=== PATIENT | female | born 1990 | race African-American/Black ===

== ENCOUNTER → 2024-01-29 10:11 | Outpatient (BNVA) | payer OTHER, SELFPAY | PROVIDERS: Visit Provider Physician Assistant Surgical ==

== ENCOUNTER → 2024-02-12 09:23 | Outpatient (BNVA) | payer OTHER, MEDICAID, SELFPAY | PROVIDERS: Visit Provider Physician Assistant Surgical ==

== ENCOUNTER 2024-04-08 07:52 | Outpatient (AMB) | payer OTHER, MEDICAID, SELFPAY ==
--- NOTE | 2024-04-08 10:04 | A.OFFVIS_ITS ---
VS Expanded 04/08/24 10:22 Height 5 ft 3 in Weight 256 lb BMI 45.3 Body Fat % 49.2 Body Fat Mass 125.8 Fat Free Mass 130 Visceral Fat Rating 14 Body Water % 49.2 Body Water Mass 125.8 Basal Metabolic Rate/Score 1,880 Intake Visit Reasons: TV [employer] SWL BMI 45.4 Allergies adalimumab [From Humira] Allergy (Intermediate, Verified 04/08/24 10:04) Hives venlafaxine Allergy (Intermediate, Verified 04/08/24 10:04) Anaphylaxis etanercept [From Enbrel] Adverse Reaction (Intermediate, Verified 04/08/24 10:04) Hives Medication List - Last Reconciled 04/08/24 by Az Cruz MD amlodipine 5 mg PO DAILY bupropion HCl 100 mg PO BID dulaglutide (Trulicity) mg subcut ferrous sulfate 325 mg PO DAILY folic acid 1 mg PO DAILY gabapentin 300 mg PO DAILY indapamide 1.25 mg PO DAILY infliximab-dyyb (Inflectra) IV loratadine (Allergy Relief (loratadine)) 10 mg PO DAILY meloxicam 15 mg PO DAILY methotrexate (PF) (Rasuvo (PF)) mg subcut oxycodone 10 mg PO BID PRN phenazopyridine 200 mg PO TID prednisolone 2.5 mg PO BID vibegron (Gemtesa) 75 mg PO DAILY HPI HPI TV [employer] SWL BMI 45.4: Details: Start time: 9.56am, End time: 10.41am ?I spent 40 minutes speaking with the patient on the phone plus an additional 5 minutes reviewing and updating records for a total of 45 minutes HPI Comments Details: Previous weight loss efforts: self diet Wakes up: 8am, Sleeps: 12am Breakfast: skips Lunch: 12pm (fast food) Dinner:6pm (steak, rice, pasta, potatoes) Snacks: 3pm (fruits, chips), 10pm (fruits, chips) Exercise: none Fluids: Coffee: none, tea: (1 cup/day with cream), soda: none, juice: cranberry juice, ETOH: none PFSH Medical History (Updated 04/08/24 @ 10:16 by Az Cruz MD) Hypertension Anxiety Stress incontinence Rheumatoid arthritis Non-insulin dependent type 2 diabetes mellitus Sleep apnea treated with continuous positive airway pressure (CPAP) Morbid obesity Telehealth Telehealth Telehealth Platform: Telephone Location of provider rendering services: practice address Location of patient: address on file Patient Identification confirmed using: Name, : Yes Telehealth method: voice only Patient verbally consented to treatment: Yes Patient verbally consented to billing insurance company: Yes Patient informed of any privacy concerns related to visit: Yes Minutes spent on Phone/Video with Pt.: 45 Assessment & Plan Assessment & Plan (1) Morbid obesity: Code(s): E66.01 - Morbid (severe) obesity due to excess calories Category: Medical Plan: 1.? Plan for lap sleeve gastrectomy. If diaphragmatic or ventral hernias are present at time of surgery, these will be repaired laparoscopically as well. Risks and complications include possible conversion to an open procedure, anastomotic leak, bleeding requiring transfusion, small bowel obstruction, , DVT and pulmonary embolism, cardiac, or pulmonary complications, as fpc complications such as anastomotic ulcer, insufficient weight loss and vitamin deficiencies. I emphasized the importance of close follow-up, adherence to instructions and good communication. 2. You will receive a link of our software tracy to generate an individualized nutritional and exercise plan specific for you. Please send me a screenshot of the plans you will generate Meal to include lean meat (beef, fish, pork, turkey, chicken), or turkish yogurt, or egg whites, or beans with a salad with olive oil and fruits (berries, pears, apples, kiwi). Avoid salt, breads, potatoes, rice, pasta, desserts. ?3. If you choose shakes, each shake would be drunk slowly, like coffee in a period of 2 hours. ?4. If you choose bars, cut each bar in 4 pieces and eat each piece in 30min ?to make each bar last 2 hours. ?5. I emphasized the importance of measuring accurately the food portion and measure it when serving the food in plate ?6. The meal portions include a specific number of forks of meat and salad. You always eat the meat portion but you can replace up to half of salad/vegetables portion with rice, potatoes or pasta, or a fruit ?if you like. The less you do it the better weight loss will be. ?7. One full-size fork is what it can be scooped on the fork without falling aside and not what can be bit with the fork. Use regular forks like those you find in a typical restaurant. ?8.? Please send me weight measurements as soon as possible and then once a week. Always include your diet and exercise plan. 9. The best choice would be to purchase a stationary bike, elliptical or treadmill at home that can track calories. Let me know if you do so I can give you an exercise plan. ?10.?It is important of avoiding and for at least 18 months postoperatively and has been discussed at the infosession. ?11. Goal is to lose at least 1.5-2lbs per week ?12. Goal to lose 10% of your weight before surgery, which is about 25lbs. Ultimate weight goal: 231lbs before surgery 13. Please follow the diet plan exactly without any change. If you don't like something about the plan or you feel hungry you need to communicate with me so I can help you revise the plan. You should not change the plan yourself. 14. To be scheduled for EGD to assess your stomach. The possibility of biopsies was discussed. Patient needs to avoid use of NSAIDs and aspirin for 1 week prior to EGD. Risks of perforation and? bleeding was discussed with the patient. This will be an outpatient procedure with IV sedation. Orders: Orders Insulin Today E11.9 - Type 2 diabetes mellitus without complications, E66.01 - Morbid (severe) obesity due to excess calories, G47.30 - Sleep apnea, unspecified, I10 - Essential (primary) hypertension Hemoglobin A1c Today E11.9 - Type 2 diabetes mellitus without complications, E66.01 - Morbid (severe) obesity due to excess calories, G47.30 - Sleep apnea, unspecified, I10 - Essential (primary) hypertension Lipid Panel Today E11.9 - Type 2 diabetes mellitus without complications, E66.01 - Morbid (severe) obesity due to excess calories, G47.30 - Sleep apnea, unspecified, I10 - Essential (primary) hypertension IRON PROFILE Today E11.9 - Type 2 diabetes mellitus without complications, E66.01 - Morbid (severe) obesity due to excess calories, G47.30 - Sleep apnea, unspecified, I10 - Essential (primary) hypertension Vitamin B12 and Folate Today E11.9 - Type 2 diabetes mellitus without complications, E66.01 - Morbid (severe) obesity due to excess calories, G47.30 - Sleep apnea, unspecified, I10 - Essential (primary) hypertension Zinc Today E11.9 - Type 2 diabetes mellitus without complications, E66.01 - Morbid (severe) obesity due to excess calories, G47.30 - Sleep apnea, unspecified, I10 - Essential (primary) hypertension Vitamin B1 Today E11.9 - Type 2 diabetes mellitus without complications, E66.01 - Morbid (severe) obesity due to excess calories, G47.30 - Sleep apnea, unspecified, I10 - Essential (primary) hypertension TSH reflex Free T4 Today E11.9 - Type 2 diabetes mellitus without complication s, E66.01 - Morbid (severe) obesity due to excess calories, G47.30 - Sleep apnea, unspecified, I10 - Essential (primary) hypertension Vitamin D 25-OH Total Today E11.9 - Type 2 diabetes mellitus without complications, E66.01 - Morbid (severe) obesity due to excess calories, G47.30 - Sleep apnea, unspecified, I10 - Essential (primary) hypertension ECG 12 lead EKG Today E11.9 - Type 2 diabetes mellitus without complications, E66.01 - Morbid (severe) obesity due to excess calories, G47.30 - Sleep apnea, unspecified, I10 - Essential (primary) hypertension H Pylori Breath Test Today E11.9 - Type 2 diabetes mellitus without complications, E66.01 - Morbid (severe) obesity due to excess calories, G47.30 - Sleep apnea, unspecified, I10 - Essential (primary) hypertension Complete Blood Count Auto Diff Today E11.9 - Type 2 diabetes mellitus without complications, E66.01 - Morbid (severe) obesity due to excess calories, G47.30 - Sleep apnea, unspecified, I10 - Essential (primary) hypertension Comprehensive Met. Panel Today E11.9 - Type 2 diabetes mellitus without complications, E66.01 - Morbid (severe) obesity due to excess calories, G47.30 - Sleep apnea, unspecified, I10 - Essential (primary) hypertension C Reactive Protein Today E11.9 - Type 2 diabetes mellitus without complications, E66.01 - Morbid (severe) obesity due to excess calories, G47.30 - Sleep apnea, unspecified, I10 - Essential (primary) hypertension Vitamin A Today E11.9 - Type 2 diabetes mellitus without complications, E66.01 - Morbid (severe) obesity due to excess calories, G47.30 - Sleep apnea, unspecified, I10 - Essential (primary) hypertension Ferritin Today E11.9 - Type 2 diabetes mellitus without complications, E66.01 - Morbid (severe) obesity due to excess calories, G47.30 - Sleep apnea, unspe cified, I10 - Essential (primary) hypertension US abdomen comp w elastography Today E11.9 - Type 2 diabetes mellitus without complications, E66.01 - Morbid (severe) obesity due to excess calories, G47.30 - Sleep apnea, unspecified, I10 - Essential (primary) hypertension XR chest 2V Today E11.9 - Type 2 diabetes mellitus without complications, E 66.01 - Morbid (severe) obesity due to excess calories, G47.30 - Sleep apnea, unspecified, I10 - Essential (primary) hypertension FL upper GI w air Today E11.9 - Type 2 diabetes mellitus without complications, E66.01 - Morbid (severe) obesity due to excess calories, G47.30 - Sleep apnea, unspecified, I10 - Essential (primary) hypertension Referrals Behavioral Health Referral E11.9 - Type 2 diabetes mellitus without complications, E66.01 - Morbid (severe) obesity due to excess calories, G47.30 - Sleep apnea, unspecified, I10 - Essential (primary) hypertension Nutrition/Dietitian Referral E11.9 - Type 2 diabetes mellitus without complications, E66.01 - Morbid (severe) obesity due to excess calories, G47.30 - Sleep apnea, unspecified, I10 - Essential (primary) hypertension
[2024-04-08 10:22] VITALS: BMI 45.3
== END 2024-04-08 10:42 | disposition home or self-care (01) ==
LOC: HO.HBS 07:52
PROVIDERS: Visit Provider Surgery
DX: E66.01 Morbid (severe) obesity due to excess calories (principal)
CPT/HCPCS: 99204

== ENCOUNTER → 2024-04-08 07:52 | Outpatient (BNVA) | payer OTHER, MEDICAID, SELFPAY | PROVIDERS: Visit Provider Surgery ==

== ENCOUNTER 2024-04-20 10:34 | Outpatient (REF) | payer MEDICARE, SELFPAY ==
--- NOTE | ~2024-04-20 | XR_ITS ---
EXAMINATION: XR CHEST CLINICAL INFORMATION: Morbid severe obesity due to excess calories, weight loss surgery. COMPARISON: None available. TECHNIQUE: 2 views of the chest were obtained. FINDINGS: There is no gross pneumothorax. Lung volumes are low. Heart size is normal. No pleural effusion. No focal consolidation to suggest pneumonia. Mild dextroscoliosis of the lumbar spine. XR/XR chest 2V IMPRESSION: No evidence of pneumonia.
[2024-04-20 10:56] LABS: MANUAL DIFF FLAG NO
--- NOTE | 2024-04-20 10:57 | ECG_ITS ---
Test Reason : e66.01 Blood Pressure : / mmHG Vent. Rate : 085 BPM Atrial Rate : 085 BPM P-R Int : 162 ms QRS Dur : 082 ms QT Int : 380 ms P-R-T Axes : 037 021 007 degrees QTc Int : 452 ms Normal sinus rhythm Nonspecific T wave abnormality Abnormal ECG No previous ECGs available Referred By: Az Cruz Electronically Signed By:JOHN MEDRANO
[2024-04-20 11:48] LABS: Basophils Absolute Auto 0.1 X10*3/uL (0.0-0.2); Basophils Percent Auto 0.8 % (0-2); Eosinophils Absolute Auto 0.2 X10*3/uL (0.0-0.4); Eosinophils Percent Auto 1.9 % (0-4); Hematocrit 41.8 % (37.0-47.0); Hemoglobin 13.8 g/dl (12.0-16.0); Imm Gran Pct Auto 0.9 % (0.0-0.4); Lymphocytes Absolute Auto 3.3 X10*3/uL (1.2-4.9); Lymphocytes Percent Auto 29.9 % (20-40); Mean Corpuscular Hemoglobin 28.6 pg (27.0-33.0); Mean Corpuscular Volume 86.7 fL (80.0-98.0); Mean Platelet Volume 9.3 fL (9.4-12.3); Monocytes Percent Auto 9.3 % (2-11); Neutrophils Absolute Auto 6.3 x10*3/uL (2.0-8.3); Neutrophils Percent Auto 57.2 % (45-73); Platelet Count 312 X10*3/uL (160-400); Red Blood Count 4.82 X10*6/uL (4.20-5.50); Red Cell Distribution Width 13.9 % (11.0-16.0)
[2024-04-20 11:53] LABS: Estimated Average Glucose 105 mg/dL; Hemoglobin A1c % 5.3 % (<6.0)
[2024-04-20 12:26] LABS: Alanine Aminotransferase 30 U/L (0-31); Alkaline Phosphatase 57 U/L (39-117); Aspartate Amino Transferase 18 U/L (5-31); Bilirubin Total 0.7 mg/dL (0.0-1.0); Blood Urea Nitrogen 19 mg/dL (9-16); C Reactive Protein 3.23 mg/dL (< or = 0.50); Calcium 9.6 mg/dL (8.4-10.2); Cholesterol 197 mg/dL (<200); Estimated Glomerular Filt Rate > 60; Glucose Random 87 mg/dL (60-115); HDL Cholesterol 41 mg/dL (>40); Iron 60 mcg/dL (30-160); LDL Cholesterol Calculated 132 mg/dL (<100); Percent Iron Saturation 21 % (15-50); Total Iron Binding Capacity 291 mcg/dL (228-428); Total Protein 7.6 g/dL (6.5-8.0); Triglycerides 122 mg/dL (<150); Unsaturated Iron Binding 231 ug/dL
[2024-04-20 12:37] LABS: Anion Gap 12 (12-20); Carbon Dioxide 26 mmol/L (22-29); Chloride 105 mmol/L (96-108); Potassium 2.9 mmol/L (3.3-5.1); Sodium 140 mmol/L (135-145)
[2024-04-20 12:40] LABS: Ferritin 235 ng/mL (10-122); Vitamin D 25-OH Total 38.6 ng/mL (>30)
[2024-04-20 12:45] LABS: Folate > 20.0 ng/mL (> or = 4.0); Insulin 26 uU/mL (2-29); Vitamin B12 572 pg/mL (200-900)
[2024-04-26 02:58] LABS: Zinc 61 mcg/dL (60-130)
[2024-04-26 13:58] LABS: Vitamin A 38 mcg/dL (38-98)
[2024-04-26 15:13] LABS: Vitamin B1 6 nmol/L (8-30)
== END 2024-04-20 10:35 | disposition home or self-care (01) ==
LOC: HO.LAB 10:34
PROVIDERS: PCP Internal Medicine; Visit Provider Surgery
DX: Z13.89 Encounter for screening for other disorder (principal)
CPT/HCPCS: 36415; 71046; 80053; 80061; 82306; 82607; 82728; 82746; 83036; 83525; 83540; 84425; 84443; 84590; 84630; 85025; 86140; 93005

== ENCOUNTER → 2024-04-20 10:57 | Outpatient (BNV) | payer MEDICARE, SELFPAY | PROVIDERS: PCP Internal Medicine; Visit Provider Internal Medicine | DX: R94.31 Abnormal electrocardiogram [ECG] [EKG] (principal) | CPT/HCPCS: 93010 ==

== ENCOUNTER 2024-04-20 14:46 | Emergency (ER) | payer MEDICARE, SELFPAY ==
[2024-04-20 14:52] VITALS: BP 136/71; PULSE 113; RESP 20; TEMP 36.6; O2SAT 99; BMI 46.4
--- NOTE | 2024-04-20 14:52 | ED_ITS ---
HPI - General Adult General Chief complaint: Recheck/Abnormal Lab/Rx Stated complaint: Sent by Dr Ross abnormal labs Source: patient Mode of arrival: ambulatory History of Present Illness ED Provider: Dr Barnes HPI narrative: 33-year-old female who presents after being instructed to come into the emergency room for routine lab work that demonstrated a potassium of 2.9, patient denies any chest pain/abdominal discomfort and denies any muscular cramps. She states she has otherwise been feeling well but has recently been starting on ramipril. Related Data Home Medications ?Medication ?Instructions ?Recorded ?Confirmed dulaglutide 0.75 mg/0.5 mL mg subcut 02/12/24 subcutaneous pen injector (Trulicity) ferrous sulfate 325 mg (65 mg 325 mg PO DAILY 02/12/24 iron) tablet folic acid 1 mg tablet 1 mg PO DAILY 02/12/24 gabapentin 300 mg capsule 300 mg PO DAILY 02/12/24 indapamide 1.25 mg tablet 1.25 mg PO DAILY 02/12/24 loratadine 10 mg tablet (Allergy 10 mg PO DAILY 02/12/24 Relief (loratadine)) methotrexate (PF) 25 mg/0.5 mL mg subcut 02/12/24 subcutaneous auto-injector (Rasuvo (PF)) oxycodone 10 mg tablet 10 mg PO BID PRN 02/12/24 prednisolone 5 mg tablet 2.5 mg PO BID 02/12/24 amlodipine 5 mg tablet 5 mg PO DAILY 04/08/24 04/08/24 bupropion HCl 100 mg tablet 100 mg PO BID 04/08/24 04/08/24 infliximab-dyyb 100 mg intravenous IV 04/08/24 04/08/24 solution (Inflectra) meloxicam 15 mg tablet 15 mg PO DAILY 04/08/24 04/08/24 phenazopyridine 200 mg tablet 200 mg PO TID 04/08/24 04/08/24 vibegron 75 mg tablet (Gemtesa) 75 mg PO DAILY 04/08/24 04/08/24 Allergies Allergy/AdvReac Type Severity Reaction Status Date / Time adalimumab [From Humira] Allergy Intermediate Hives Verified 04/20/24 14:53 venlafaxine Allergy Intermediate Anaphylaxis Verified 04/20/24 14:53 etanercept [From Enbrel] AdvReac Intermediate Hives Verified 04/20/24 14:53 Review of Systems 2 Review of Systems: Pertinent positives and negatives as stated in HPI PMFSH Past Medical History Source: nursing notes reviewed Medical History Hypertension Anxiety Stress incontinence Rheumatoid arthritis Non-insulin dependent type 2 diabetes mellitus Sleep apnea treated with continuous positive airway pressure (CPAP) Morbid obesity Social History Social History Advance Directives: No Advance Directives Information Provided: No Physical Exam ED Vital Signs: Vital Signs - 24 hr 04/20/24 14:52 04/20/24 21:16 04/20/24 21:52 Temperature 97.9 F 98.0 F 97.0 F Pulse Rate 113 H 83 83 Respiratory Rate 20 16 16 Blood Pressure 136/71 140/69 H 128/80 Pulse Oximetry 99 97 97 Oxygen Delivery Method Room Air Room Air Room Air BMI result Body Mass Index 46.4 VITAL SIGNS: Reviewed. GENERAL: Well developed, well nourished, in no acute distress. HEAD: Normocephalic/atraumatic EYES: PERRLA, EOMI EARS: Ext canals without abnormality NOSE: Nares patent bilateral OROPHARYNX: no oral lesions noted, posterior pharynx clear NECK: Supple, no adenopathy LUNGS: Normal breath sounds. No adventitious sounds or accessory muscle use. SpO2<97> CARDIOVASCULAR: Regular rate and rhythm without noted murmurs ABDOMEN: Soft, non-tender, non-distended with bowel sounds. MUSCULOSKELETAL: No tenderness, deformities, or effusions noted on gross inspection. EXTREMITIES: No cyanosis, clubbing or edema. SKIN: Inspection of the skin reveals no rashes NEUROLOGIC: Alert and oriented x 4. Strength and sensation to light touch were grossly intact x 4. Course Course Course Narrative: This is a rapid medical exam performed by Alize Harrington NP: Additional HPI, ROS, PE not included below will be deferred to primary provider. Patient is a 33-year-old female with history of T2DM, HTN, RA, sleep apnea on CPAP, anxiety presenting to the ED from PCP for abnormal labs. States potassium is 2.9 on labs drawn this am. Denies chest pain, felt palpitations the other day, some fatigue. Plan: EKG, repeat labs Medical Decision Making Medical Decision Making MDM Narrative: 33-year-old female with history and clinical presentation, DDX: Medication induced hypokalemia as patient denies any history of vomiting or diarrhea. I reviewed all investigations and hematologic indices are negative for leukocytosis/anemia/thrombocytopenia. Chemistry indices demonstrate a mild hypokalemia without symptoms or EKG changes, there is no KURT and beta hCG is undetectable. EKG does not show any acute changes. Patient was repleted with 60 mEq of potassium chloride, encouraged to discuss the medication with her primary care doctor and also provided with a food list for potassium content. She is otherwise discharged in stable condition. Differential Diagnosis Differential Diagnoses: The differential diagnosis associated with the presentation includes Please see the discussion above Admission/Observation Consideration of admission/observation: Escalation of care including admission/observation considered Please see the discussion above Lab Data MDM Lab Attestation statement: I reviewed the patient's lab results. Please see the discussion above 04/20/24 15:37 04/20/24 15:37 Labs: Lab Results 04/20/24 Range/Units 15:37 WBC 10.4 (4.8-10.8) X10*3/uL RBC 4.85 (4.20-5.50) X10*6/uL Hgb 13.9 (12.0-16.0) g/dl Hct 41.8 (37.0-47.0) % MCV 86.2 (80.0-98.0) fL MCH 28.7 (27.0-33.0) pg MCHC 33.3 (31.0-35.0) g/dl RDW 13.6 (11.0-16.0) % Plt Count 304 (160-400) X10*3/uL MPV 9.0 L (9.4-12.3) fL Immature Gran % (Auto) 0.9 H (0.0-0.4) % Neut % (Auto) 67.8 (45-73) % Lymph % (Auto) 23.8 (20-40) % Mccracken % (Auto) 5.8 (2-11) % Eos % (Auto) 1.0 (0-4) % Baso % (Auto) 0.7 (0-2) % Lymph # (Auto) 2.5 (1.2-4.9) X10*3/uL Mccracken # (Auto) 0.6 (0.1-1.2) X10*3/uL Eos # (Auto) 0.1 (0.0-0.4) X10*3/uL Baso # (Auto) 0.1 (0.0-0.2) X10*3/uL Abs Immat Gran (auto) 0.09 H (0.00-0.03) X10*3/uL Absolute Neuts (auto) 7.1 (2.0-8.3) x10*3/uL Absolute Nucleated RBC 0.000 (0.0-0.012) X10*3/uL Nucleated RBC % (auto) 0.0 (0.0-0.2) /100WBC Sodium 140 (135-145) mmol/L Potassium 3.1 L (3.3-5.1) mmol/L Chloride 104 (96-108) mmol/L Carbon Dioxide 26 (22-29) mmol/L Anion Gap 13 (12-20) BUN 20 H (9-16) mg/dL Creatinine 1.20 (0.5-1.4) mg/dL Estim Creat Clear Calc 82.3 Estimated GFR 51 Random Glucose 113 (60-115) mg/dL Calcium 10.2 D (8.4-10.2) mg/dL Total Bilirubin 0.7 (0.0-1.0) mg/dL AST 20 (5-31) U/L ALT 32 H (0-31) U/L Alkaline Phosphatase 54 (39-117) U/L Total Protein 7.8 (6.5-8.0) g/dL Albumin 4.0 (3.5-5.0) g/dL Beta HCG, Quant < 2 mIU/mL Independent Interpretation I performed an independent interpretation of an: EKG Interpretation: Normal sinus rhythm, HR-100, no STEMI, NM/QRS/QTC is within normal limits, there are no acute EKG changes when compared to prior from April/2024. External Record Review External record reviewed: Outpatient record and Prior outpatient labs Chronic Conditions Patient?s care impacted by: Hypertension and Other Obesity, rheumatoid arthritis Critical Care Time Critical Care Time Critical Care Time: Yes Total Critical Care Time: 45 Attestation: I personally attest to this time spent taking care of the patient. Discharge Plan Discharge Clinical Impression: Hypokalemia Patient Disposition: Home, Self-Care Instructions: Potassium Content of Foods List (ED), Hypokalemia (ED) Additional Instructions: 1. Resume all home medications as prescribed. 2. Please follow-up with your doctors as prescribed, please review the informational list of potassium content in foods, the decrease in your potassium may be secondary to your new medication and this can be further evaluated by your primary care doctor. Do not hesitate to return to the emergency room for any worsening symptoms. Prescriptions: No Action Trulicity 0.75 mg/0.5 mL pen injector subcut ferrous sulfate 325 mg (65 mg iron) tablet 325 mg PO DAILY indapamide 1.25 mg tablet 1.25 mg PO DAILY Rasuvo (PF) 25 mg/0.5 mL auto-injector subcut oxycodone 10 mg tablet 10 mg PO BID PRN prednisolone 5 mg tablet 2.5 mg PO BID folic acid 1 mg tablet 1 mg PO DAILY gabapentin 300 mg capsule 300 mg PO DAILY loratadine [Allergy Relief (loratadine)] 10 mg tablet 10 mg PO DAILY amlodipine 5 mg tablet 5 mg PO DAILY meloxicam 15 mg tablet 15 mg PO DAILY Gemtesa 75 mg tablet 75 mg PO DAILY phenazopyridine 200 mg tablet 200 mg PO TID bupropion HCl 100 mg tablet 100 mg PO BID Inflectra 100 mg recon soln IV Referrals: Zaki Villagomez MD [Primary Care Provider] - Print Language: Turkish
--- NOTE | 2024-04-20 14:54 | ECG_ITS ---
Test Reason : abnormal labs Blood Pressure : / mmHG Vent. Rate : 100 BPM Atrial Rate : 100 BPM P-R Int : 174 ms QRS Dur : 084 ms QT Int : 344 ms P-R-T Axes : 047 038 018 degrees QTc Int : 443 ms Normal sinus rhythm Nonspecific T wave abnormality Abnormal ECG When compared with ECG of 20-APR-2024 11:02, No significant change was found Referred By: Teri Harrington Electronically Signed By:JOHN MEDRANO
[2024-04-20 15:41] LABS: MANUAL DIFF FLAG NO
[2024-04-20 15:55] LABS: Basophils Absolute Auto 0.1 X10*3/uL (0.0-0.2); Basophils Percent Auto 0.7 % (0-2); Eosinophils Absolute Auto 0.1 X10*3/uL (0.0-0.4); Hematocrit 41.8 % (37.0-47.0); Hemoglobin 13.9 g/dl (12.0-16.0); Imm Gran Abs Auto 0.09 X10*3/uL (0.00-0.03); Imm Gran Pct Auto 0.9 % (0.0-0.4); Lymphocytes Absolute Auto 2.5 X10*3/uL (1.2-4.9); Lymphocytes Percent Auto 23.8 % (20-40); Mean Corpuscular HGB Conc 33.3 g/dl (31.0-35.0); Mean Corpuscular Hemoglobin 28.7 pg (27.0-33.0); Mean Corpuscular Volume 86.2 fL (80.0-98.0); Monocytes Absolute Auto 0.6 X10*3/uL (0.1-1.2); Monocytes Percent Auto 5.8 % (2-11); Neutrophils Absolute Auto 7.1 x10*3/uL (2.0-8.3); Neutrophils Percent Auto 67.8 % (45-73); Platelet Count 304 X10*3/uL (160-400); Red Blood Count 4.85 X10*6/uL (4.20-5.50); Red Cell Distribution Width 13.6 % (11.0-16.0); White Blood Count 10.4 X10*3/uL (4.8-10.8)
[2024-04-20 16:06] LABS: Alanine Aminotransferase 32 U/L (0-31); Alkaline Phosphatase 54 U/L (39-117); Anion Gap 13 (12-20); Aspartate Amino Transferase 20 U/L (5-31); Bilirubin Total 0.7 mg/dL (0.0-1.0); Blood Urea Nitrogen 20 mg/dL (9-16); Calcium 10.2 mg/dL (8.4-10.2); Carbon Dioxide 26 mmol/L (22-29); Chloride 104 mmol/L (96-108); Creatinine Clr Calc Pharmacy 82.3; Estimated Glomerular Filt Rate 51; Glucose Random 113 mg/dL (60-115); HCG Quantitative < 2 mIU/mL; Potassium 3.1 mmol/L (3.3-5.1); Sodium 140 mmol/L (135-145); Total Protein 7.8 g/dL (6.5-8.0)
[2024-04-20 21:16] VITALS: BP 140/69; PULSE 83; RESP 16; TEMP 36.7; O2SAT 97
[2024-04-20 21:52] VITALS: BP 128/80; PULSE 83; RESP 16; TEMP 36.1; O2SAT 97
[2024-04-20] MEDS: Potassium Chloride ER 20 MEQ TAB.ER.PRT 60 MEQ PO (22:20)
[2024-04-20 22:24] VITALS: BP 128/80; PULSE 83; RESP 16; TEMP 36.1; O2SAT 97
== END 2024-04-20 22:25 | disposition home or self-care (01) ==
PROVIDERS: Registered Nurse Emergency; Emergency Provider Student in an Organized Health Care Education/Training Program; PCP Internal Medicine
DX: E87.6 Hypokalemia (principal); I10 Essential (primary) hypertension; E11.9 Type 2 diabetes mellitus without complications; E66.01 Morbid (severe) obesity due to excess calories; G47.30 Sleep apnea, unspecified; Z68.42 Body mass index [BMI] 45.0-49.9, adult
CPT/HCPCS: 36415; 71046; 80053; 80061; 82306; 82607; 82728; 82746; 83036; 83525; 83540; 84425; 84443; 84590; 84630; 84702; 85025; 86140; 93005; 99283; 99284

== ENCOUNTER 2024-04-25 10:21 | Outpatient (REF) | payer MEDICARE, MEDICAID, SELFPAY ==
--- NOTE | ~2024-04-25 | US_ITS ---
EXAMINATION: US COMPLETE ABDOMEN WITH LIVER ELASTOGRAPHY CLINICAL INFORMATION: Morbid obesity. COMPARISON: None available. TECHNIQUE: Real-time imaging of the abdominal viscera. Noninvasive ultrasound liver fibrosis assessment is performed using Porter ElastPQ point quantification shear wave elastography (2D-SWE) with a C5-2 MHz transducer. Multiple elastography samples are obtained. FINDINGS: PANCREAS: Pancreas could not be seen secondary to overlying bowel. ABDOMINAL AORTA: The proximal, middle, and distal aortic segments are normal in caliber. INFERIOR VENA CAVA: Visualized portions are normal. LIVER: The liver is enlarged measuring over 19 cm in greatest length. No focal lesion or intrahepatic biliary duct dilatation. The right lobe measures 19.0 cm in length. The left lobe measures 10.5 cm in length. Portal flow is towards the liver (hepatopetal). Shear wave liver elastography median stiffness is 1.42 m/s (reference: normal median stiffness is 1.3 m/s or less). IQR/median stiffness to assess sampling precision is 0.10 (reference: good quality data set is IQR/median stiffness of 0.15 or less). GALLBLADDER: The gallbladder is physiologically distended without evidence of stones, sludge, polyps, wall thickening or pericholecystic fluid. COMMON BILE DUCT: Normal in caliber measuring 0.3 cm in diameter. RIGHT KIDNEY: No hydronephrosis. No renal calculi or focal parenchymal lesions. The kidney measures 11.2 cm in maximum dimension. LEFT KIDNEY: No hydronephrosis. No renal calculi or focal parenchymal lesions. The kidney measures 10.6 cm in maximum dimension. SPLEEN: Normal. The spleen measures 9.1 cm in maximum dimension. FREE FLUID: None. US/US abdomen comp w elastography IMPRESSION: 1. Hepatic steatosis. 2. Liver elastography: In the absence of other known clinical signs, measurements rule out compensated advanced chronic liver disease. If there are known clinical signs, further testing may be needed for confirmation. REFERENCE: Society of Radiologists in Ultrasound Liver Stiffness Thresholds (2020): LIVER STIFFNESS THRESHOLDS: Liver Stiffness equal or less than 1.3 m/s: High probability of being normal. Liver Stiffness less than 1.7 m/s: In the absence of other known clinical signs, rules out compensated advanced chronic liver disease. Liver Stiffness 1.7-2.1 m/s: Suggestive of compensated advanced chronic liver disease but need further test for confirmation. Liver Stiffness over 2.1 m/s: Rules in compensated advanced chronic liver disease. Liver Stiffness over 2.4 m/s: Suggestive of clinically significant portal hypertension. QUALITY OF DATA SET: IQR/Median value equal or less than 0.15 implies a quality data set. IQR/Median value over 0.15 implies a poor quality data set. SIGNIFICANT CHANGE FROM PRIOR EXAM: Significant change if liver stiffness measurement is 10% or greater from prior exam. OTHER CONSIDERATIONS: The stage of liver fibrosis may be overestimated in the setting of acute hepatitis, liver inflammation, elevated liver function tests, hepatic vascular congestion, obstructive cholestasis, non-fasting state, and infiltrative diseases such as amyloidosis and lymphoma. In some patients with NAFLD, the liver stiffness thresholds for compensated advanced chronic liver disease may be lower. In causes other than viral hepatitis and NAFLD, liver stiffness thresholds are not well established.
== END 2024-04-25 10:22 | disposition home or self-care (01) ==
LOC: HO.US 10:21
PROVIDERS: Visit Provider Surgery
DX: E66.01 Morbid (severe) obesity due to excess calories (principal); G47.30 Sleep apnea, unspecified; E11.9 Type 2 diabetes mellitus without complications; I10 Essential (primary) hypertension
CPT/HCPCS: 76700; 76981

== ENCOUNTER 2024-05-03 09:45 | Outpatient (AMB) | payer OTHER, SELFPAY ==
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
== END 2024-05-03 10:13 | disposition home or self-care (01) ==
LOC: HO.HBST 09:45
PROVIDERS: PCP Internal Medicine; Visit Provider Counselor Mental Health
DX: F41.9 Anxiety disorder, unspecified (principal); M06.9 Rheumatoid arthritis, unspecified; E66.01 Morbid (severe) obesity due to excess calories; G47.30 Sleep apnea, unspecified
CPT/HCPCS: 90791

== ENCOUNTER → 2024-05-03 09:45 | Outpatient (BNVA) | payer MEDICARE, SELFPAY | PROVIDERS: PCP Internal Medicine; Visit Provider Counselor Mental Health ==

== ENCOUNTER 2024-05-09 11:37 | Outpatient (AMB) | payer OTHER, SELFPAY ==
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
== END 2024-05-09 12:25 | disposition home or self-care (01) ==
LOC: HO.HBST 11:37
PROVIDERS: PCP Internal Medicine; Visit Provider Counselor Mental Health
DX: F41.9 Anxiety disorder, unspecified (principal); M06.9 Rheumatoid arthritis, unspecified; E66.01 Morbid (severe) obesity due to excess calories; G47.30 Sleep apnea, unspecified
CPT/HCPCS: 90832

== ENCOUNTER → 2024-05-09 11:37 | Outpatient (BNVA) | payer MEDICARE, MEDICAID, SELFPAY | PROVIDERS: PCP Internal Medicine; Visit Provider Counselor Mental Health ==

== ENCOUNTER 2024-05-18 10:33 | Day surgery (SDC) | payer MEDICARE, SELFPAY ==
--- NOTE | 2024-05-16 13:14 | HO.ANESPROP2 ---
Documented by User: Shonna Lang NP 05/16/24 13:16 HPI - Anesthesia Eval Consult details Narrative: 34yo F for Upper Endoscopy Anesthesia Pre-Procedure Meds Is the patient on any of the following meds?: GLP1/DPP4 PMFSH Active Problems Active Problems: All Active Problems Vitamin B1 deficiency (Acute) Hypertension (Acute) Anxiety (Acute) Stress incontinence (Acute) Rheumatoid arthritis (Acute) Non-insulin dependent type 2 diabetes mellitus (Acute) Sleep apnea treated with continuous positive airway pressure (CPAP) (Acute) Morbid obesity (Acute) Past Medical History Medical History Hypertension Anxiety Stress incontinence Rheumatoid arthritis Non-insulin dependent type 2 diabetes mellitus Sleep apnea treated with continuous positive airway pressure (CPAP) Morbid obesity Surgical History Surgical History History of surgery on arm H/O lithotripsy Social History Social History (Updated 05/18/24 @ 12:17 by Nancy Queen MD) Patient Tobacco Use Status: Current everyday Tobacco user Cigarettes Per Day: 5 Use of substances other than those prescribed or required for medical reasons: Yes Substance Use Type: Marijuana Substance Use Frequency: Daily Last Used Substance: Days (ago) Are you DNR?: No Advance Directives: No Advance Directives Information Provided: Yes Meds Allergies Allergy/AdvReac Type Severity Reaction Status Date / Time adalimumab [From Humira] Allergy Intermediate Hives Verified 05/18/24 11:24 venlafaxine Allergy Intermediate Anaphylaxis Verified 05/18/24 11:24 etanercept [From Enbrel] AdvReac Intermediate Hives Verified 05/18/24 11:24 Home Medications ?Medication ?Instructions ?Recorded ?Confirmed ?Last Taken ?Type dulaglutide 0.75 mg/0.5 mL 0.75 mg subcut QWEEK 02/12/24 05/18/24 05/11/24 History subcutaneous pen injector (Trulicity) ferrous sulfate 325 mg (65 mg 325 mg PO DAILY 02/12/24 05/18/24 05/18/24 History iron) tablet folic acid 1 mg tablet 1 mg PO DAILY 02/12/24 05/18/24 05/18/24 History gabapentin 300 mg capsule 300 mg PO DAILY 02/12/24 05/18/24 05/18/24 History indapamide 1.25 mg tablet 1.25 mg PO DAILY 02/12/24 05/18/24 05/18/24 History loratadine 10 mg tablet (Allergy 10 mg PO DAILY 02/12/24 05/18/24 05/18/24 History Relief (loratadine)) methotrexate (PF) 25 mg/0.5 mL 25 mg subcut QWEEK 02/12/24 05/18/24 05/15/24 History subcutaneous auto-injector (Rasuvo (PF)) oxycodone 10 mg tablet 10 mg PO BID PRN Pain 02/12/24 05/18/24 05/17/24 History prednisolone 5 mg tablet 2.5 mg PO BID 02/12/24 05/18/24 05/18/24 History bupropion HCl 100 mg tablet 100 mg PO BID 04/08/24 05/18/24 05/18/24 History infliximab-dyyb 100 mg intravenous IV 04/08/24 04/08/24 Unknown History solution (Inflectra) meloxicam 15 mg tablet 15 mg PO DAILY 04/08/24 05/18/24 05/11/24 History phenazopyridine 200 mg tablet 200 mg PO TID 04/08/24 05/18/24 Unknown History vibegron 75 mg tablet (Gemtesa) 75 mg PO DAILY 04/08/24 05/18/24 05/18/24 History cholecalciferol (vitamin D3) 50 50 mcg PO DAILY 05/18/24 05/18/24 05/18/24 History mcg (2,000 unit) tablet ramipril 2.5 mg capsule 2.5 mg PO DAILY 05/18/24 05/18/24 05/18/24 History Exam Pertinent Lab Results Pertinent Lab Results: Laboratory Tests 04/20/24 15:37 WBC 10.4 Hgb 13.9 Hct 41.8 Plt Count 304 Sodium 140 Potassium 3.1 L Chloride 104 Carbon Dioxide 26 BUN 20 H Creatinine 1.20 Narrative Narrative: EKG 04/2024 Vent. Rate : 100 BPM Atrial Rate : 100 BPM P-R Int : 174 ms QRS Dur : 084 ms QT Int : 344 ms P-R-T Axes : 047 038 018 degrees QTc Int : 443 ms Normal sinus rhythm Nonspecific T wave abnormality Abnormal ECG When compared with ECG of 20-APR-2024 11:02, No significant change was found Assessment and Plan Assessment Anesthesia Assessment: Chart Reviewed Documented by User: Nancy Queen MD 05/18/24 12:39 HPI - Anesthesia Eval Anesthesia Pre-Procedure Meds Is the patient on any of the following meds?: GLP1/DPP4 (Last dose of dulaglutide 05/11/24) If yes to any meds - educate patient: Pt education - increased risk of aspiration and/or euvolemic DKA PMFSH Active Problems Active Problems: All Active Problems Vitamin B1 deficiency (Acute) Hypertension (Acute) Anxiety (Acute) Stress incontinence (Acute) Rheumatoid arthritis (Acute) Non-insulin dependent type 2 diabetes mellitus (Acute) Sleep apnea treated with continuous positive airway pressure (CPAP) (Acute) Morbid obesity (Acute) Smoker. Last cigarette this morning Marijuana- last use yesterday Past Medical History Medical History Hypertension Anxiety Stress incontinence Rheumatoid arthritis Non-insulin dependent type 2 diabetes mellitus Sleep apnea treated with continuous positive airway pressure (CPAP) Morbid obesity Family History Family history of problems with anesthesia: No Surgical History Surgical History History of surgery on arm H/O lithotripsy History of Problems with Anesthesia: No Social History Social History (Updated 05/18/24 @ 12:17 by Nancy Queen MD) Patient Tobacco Use Status: Current everyday Tobacco user Cigarettes Per Day: 5 Use of substances other than those prescribed or required for medical reasons: Yes Substance Use Type: Marijuana Substance Use Frequency: Daily Last Used Substance: Days (ago) Are you DNR?: No Advance Directives: No Advance Directives Information Provided: Yes Meds Allergies Allergy/AdvReac Type Severity Reaction Status Date / Time adalimumab [From Humira] Allergy Intermediate Hives Verified 05/18/24 11:24 venlafaxine Allergy Intermediate Anaphylaxis Verified 05/18/24 11:24 etanercept [From Enbrel] AdvReac Intermediate Hives Verified 05/18/24 11:24 Home Medications ?Medication ?Instructions ?Recorded ?Confirmed ?Last Taken ?Type dulaglutide 0.75 mg/0.5 mL 0.75 mg subcut QWEEK 02/12/24 05/18/24 05/11/24 History subcutaneous pen injector (Trulicity) ferrous sulfate 325 mg (65 mg 325 mg PO DAILY 02/12/24 05/18/24 05/18/24 History iron) tablet folic acid 1 mg tablet 1 mg PO DAILY 02/12/24 05/18/24 05/18/24 History gabapentin 300 mg capsule 300 mg PO DAILY 02/12/24 05/18/24 05/18/24 History indapamide 1.25 mg tablet 1.25 mg PO DAILY 02/12/24 05/18/24 05/18/24 History loratadine 10 mg tablet (Allergy 10 mg PO DAILY 02/12/24 05/18/24 05/18/24 History Relief (loratadine)) methotrexate (PF) 25 mg/0.5 mL 25 mg subcut QWEEK 02/12/24 05/18/24 05/15/24 History subcutaneous auto-injector (Rasuvo (PF)) oxycodone 10 mg tablet 10 mg PO BID PRN Pain 02/12/24 05/18/24 05/17/24 History prednisolone 5 mg tablet 2.5 mg PO BID 02/12/24 05/18/24 05/18/24 History bupropion HCl 100 mg tablet 100 mg PO BID 04/08/24 05/18/24 05/18/24 History infliximab-dyyb 100 mg intravenous IV 04/08/24 04/08/24 Unknown History solution (Inflectra) meloxicam 15 mg tablet 15 mg PO DAILY 04/08/24 05/18/24 05/11/24 History phenazopyridine 200 mg tablet 200 mg PO TID 04/08/24 05/18/24 Unknown History vibegron 75 mg tablet (Gemtesa) 75 mg PO DAILY 04/08/24 05/18/24 05/18/24 History cholecalciferol (vitamin D3) 50 50 mcg PO DAILY 05/18/24 05/18/24 05/18/24 History mcg (2,000 unit) tablet ramipril 2.5 mg capsule 2.5 mg PO DAILY 05/18/24 05/18/24 05/18/24 History Exam Height,Weight and Vital Signs: Height 5 ft 3 in Weight 113.398 kg Vital Signs Temp Pulse Resp BP Pulse Ox O2 Del Method 05/18/24 11:25 97.2 F 77 16 133/89 99 Room Air Airway Mallampati Class: II TM Dist: >3cm Neck ROM: Full Loose/Missing/Broken Teeth: Yes (Caps intact. Missing teeth in the back. Denies broken or loose teeth) Heart: RRR Lungs: CTAB Assessment and Plan Assessment Anesthesia Assessment: Anesthesia Plan Discussed and Chart Reviewed Final Anesthetic Review Family History of Problems with Anesthesia: No History of Problems with Anesthesia: No NPO: Yes ASA Class: III Final Preanesthetic Review: No Changes in Pt Med Stat, Meds/Allgs Chart Reviewed, Consent Obtained/Reviewed and Anes Risks/Benef Reviewed Patient Risk: Intermediate Procedure Risk: Low Assessment/Block/Sedation in SS: Assess/Block/Sedation-SS Anesthetic Plan Anesthetic Plan: TIVA Disposition: Standard PACU
[2024-05-18 11:07] VITALS: BMI 44.3
[2024-05-18 11:07] LABS: Urine Pregnancy NEGATIVE (NEGATIVE)
[2024-05-18 11:08] LABS: UPreg QC Valid YES
[2024-05-18 11:25] VITALS: BP 133/89; PULSE 77; RESP 16; TEMP 36.2; O2SAT 99
[2024-05-18] MEDS: Lactated Ringers 1,000 ML 80 ML IVCONT (11:26)
[2024-05-18 11:31] LABS: Glucose, Whole Blood 108 mg/dL (60-115)
--- NOTE | 2024-05-18 12:56 | MHC.SHP ---
Pre-Procedural Eval Section A - 24 Hr Update-Section A only Date of Service: 05/18/24 The patient is an INPATIENT: No The patient has been examined within 24 hours of the surgical procedure. The History & Physical has been completed within 30 days and I have reviewed it.: Yes Section B - Complete if H&P > 30 days Chief Complaint: Morbid (severe) obesity due to excess calories Relevant Family History (Specify if Yes): No Relevant Social History: None Present Medications: None Medical History: No relevant PMH History of Previous Operations: No relevant previous surgery Allergies: Allergies Allergy/AdvReac Type Severity Reaction Status Date / Time adalimumab [From Humira] Allergy Intermediate Hives Verified 05/18/24 11:24 venlafaxine Allergy Intermediate Anaphylaxis Verified 05/18/24 11:24 etanercept [From Enbrel] AdvReac Intermediate Hives Verified 05/18/24 11:24 Review of Systems Sugical H&P ROS: Negative: Constitution, Cardiovascular, Respiratory, Neurological, Psychiatric, Hem-Onc, Allergic/Immunologic, Gastrointestinal, Genitourinary, Musculoskeletal, Integumentary, Endocrine and Eyes/Ears/Nose/Throat Exam Surgical H&P Exam: Normal: HEENT, Normal: Heart, Normal: Lungs, Normal: Extremities, Normal: Abdomen, Normal: Skin and Normal: Neurological Plan Diagnosis/Plan: Unchanged (EGD to assess the stomach's anatomy. Risks of bleeding and perforation were discussed with the patient and she is in agreement with the plan.) I have reviewed the history and physical and performed a pertinent physical examination on my patient. No changes have occurred unless specified. Time Spent With Patient Time: Total time managing care of this patient today ____ minutes.
--- NOTE | 2024-05-18 13:11 | PM.OP ---
Brief Operative Note Date of Service: 05/18/24 Pre-op diagnosis: Morbid obesity Post-op diagnosis: same (& esophagitis I) Procedure: PROCEDURE DATE: 05/18/2024 PREOPERATIVE DIAGNOSIS: Morbid obesity POSTOPERATIVE DIAGNOSIS: ?Same as above. 1) esophagitis grade I PROCEDURE: [id number] with biopsies Surgeon: ?Prieto Cruz M.D.. Ph.D. Sales Assistant Displays: None ? Anesthesia: IV sedation Estimated blood loss: ?Minimal FINDINGS AND PROCEDURE: ? OPERATIVE INDICATIONS: ?The patient is a 34 year old female known to me who is interested in bariatric surgery. Based on this information I recommended an upper endoscopy to evaluate the patient's symptoms. Risks and complications of the surgery were discussed with the patient in advance particularly the possibility of perforation or bleeding that may require surgical intervention. The patient understood the risks and was in agreement with the plan. ? PROCEDURE: After informed consent was obtained by the patient, the patient was ?transferred to the Operating Room and was placed in the supine position.? After successful induction of IV sedation, a mouth block was inserted and the patient was placed in the left lateral decubitus position. An upper endoscopy was performed next, the oropharynx and esophagus appeared within the normal limits. There was no hiatal hernia. The z-line was irregular with tongues of gastric mucosa protruding into the esophagus with less than 25% circumference. Two biopsies were obtained from the distal esophagus 2-3 cm proximal to the GE junction and two additional biopsies from the GE junction. The stomach was entered and it appeared to be of normal size. There was no gastritis. There was no stricture or ulcer. A biopsy was obtained from the gastric fundus and the antrum. No significant bleeding was noted from any of the biopsy sites. Retroflexion of the scope revealed a normal GE junction. The scope was then advanced into the duodenum which appeared to be normal as well. At that point the duodenum ?and the stomach were decompressed and the scope was withdrawn from the patient's mouth. The patient extubated and was transferred in stable condition to the Recovery Room for further care. I was present and performed all steps of the procedure. There were no residents to assist with this case. Prieto Cruz M.D., Ph.D. Surgeon: Az Cruz MD Anesthesia: MAC Was an Sales Assistant Displays used for this Procedure?: No Estimated blood loss (mL): 0 IV fluids (mL): 400 Urine output (mL): 0 (No Johnson to record output) Pathology: other (1) antrum x1, 2) fundus x1, 3) GE junction x2, 4) distal esophagus x2) Condition: stable Disposition: PACU
[2024-05-18 14:03] VITALS: BP 123/82; PULSE 95; RESP 16; TEMP 36.6; O2SAT 98
[2024-05-18 14:18] VITALS: BP 107/69; PULSE 98; RESP 16; TEMP 36.6; O2SAT 100
== END 2024-05-18 14:51 | disposition home or self-care (01) ==
PROVIDERS: Nurse Practitioner; PCP Internal Medicine; Visit Provider Surgery
PROC: 0DJ08ZZ Inspection of Upper Intestinal Tract, Via Natural or Artificial Opening Endoscopic (ICD-10-PCS; CPT 43235; principal; 2024-05-18 13:10)
DX: E66.01 Morbid (severe) obesity due to excess calories (principal); Z68.42 Body mass index [BMI] 45.0-49.9, adult; K20.80 Other esophagitis without bleeding; K22.89 Other specified disease of esophagus; I10 Essential (primary) hypertension; M06.9 Rheumatoid arthritis, unspecified; E11.9 Type 2 diabetes mellitus without complications; F41.9 Anxiety disorder, unspecified; N39.3 Stress incontinence (female) (male); G47.30 Sleep apnea, unspecified; Z99.89 Dependence on other enabling machines and devices; Z79.52 Long term (current) use of systemic steroids; Z79.85 Long-term (current) use of injectable non-insulin antidiabetic drugs; Z79.899 Other long term (current) drug therapy; Z88.8 Allergy status to other drugs, medicaments and biological substances; F17.210 Nicotine dependence, cigarettes, uncomplicated
CPT/HCPCS: 43239; 81025; 82947; 88305; 88313; 88342; J1596; J2250; J2704

== ENCOUNTER → 2024-05-18 10:33 | Outpatient (BNV) | payer MEDICARE, SELFPAY | PROVIDERS: PCP Internal Medicine; Visit Provider Surgery | DX: K20.90 Esophagitis, unspecified without bleeding (principal) | CPT/HCPCS: 43239 ==

== ENCOUNTER → 2024-05-25 08:48 | Outpatient (REF) | payer MEDICARE, SELFPAY ==
--- NOTE | 2024-05-25 09:01 | CA_ITS ---
Transthoracic Echocardiogram Patient (Last, First, Middle): Namita Deleon, Gender: Female Date of : 1990 Age: 34 Procedure Date: 05/25/2024 Procedure Type: Transthoracic Echocardiogram Location: OP Height: 160.02 cm Weight: 116.58 kg BSA: 2.15 m2 Heart Rate: bpm BP: 124 / 82 mmHg Retail Manager: MIKE Referring MD: Az Cruz MD Stenciler: Abraham Patterson MD Symptoms: R94.31 - Abnormal electrocardiogram [ECG] [EKG] Study Quality: Adequate ECG Rhythm: Sinus Conclusions: - Essentially normal study Findings Left Ventricle Normal left ventricular size, thickness, and systolic function. The visually estimated ejection fraction is between 60-65%. Diastolic function is normal for age. Right Ventricle Normal right ventricular cavity size and systolic function. Atria Both atria are normal in size. Interatrial shunt cannot be excluded. Aortic Valve The aortic valve structure and function is likely normal. There is no aortic valve stenosis. There is no aortic valve regurgitation. Mitral Valve Normal mitral valve structure and function. There is trace mitral valve regurgitation. There is no mitral valve stenosis. Pulmonic Valve The pulmonic valve is likely normal. Tricuspid Valve Likely normal tricuspid valve structure and function. There is trace tricuspid valve regurgitation. The right ventricular systolic pressure is normal. The right ventricular systolic pressure is 16 mmHg. Normal right atrial pressure. There is no evidence of pulmonary hypertension. Great Vessels All visible segments of the aorta are normal in size. The pulmonary artery was not well visualized. Venous The inferior vena cava is normal in size and collapses greater than 50% with inspiration. Pericardium/Pleural There is no evidence of pericardial effusion. Prior Study Comparison No prior study available for comparison. Measurements 2D Linear Measurements IVSd: 1.02 0.6-0.9/0.6-1.0 cm LVIDd: 4.78 3.9-5.3/4.2-5.9 cm LVIDd Index: 2.22 2.4-3.2/2.2-3.1 cm/m2 LVIDs: 3.45 2.0-3.6 cm LVPWd: 0.89 0.7-1.1 cm LA Diam: 4.10 2.7-3.8/3.0-4.0 cm LAIDs Index: 1.91 1.5-2.3 cm/m2 LV Mass: 197.39 67-162/88-224 g LV Mass Index: 91.81 43-95/49-115 g/m2 LVOT Diam: 2.10 3.0+(-)1.3 cm 2D Systolic Function EF 4C: 57.90 >55% EF 2C: 61.80 >55% EF BiP: 60.40 >55% Mitral Valve MV Pk E: 0.80 MV PK A: 0.53 MV Decel Time: 232.00 E/A: 1.50 E'Lateral: 12.60 E'Medial: 10.70 E/E' Med: 7.50 E/E' Lat: 6.40 PHT: 68.00 MVA PHT: 3.24 Decel [place]: 3.45 Aortic Valve AoV Pk Phi: 1.29 AoV Mn Phi: 0.87 AoV VTI: 0.29 AoV Pk Grad: 7.00 Aov Mn Grad: 3.00 SARI Cont.VTI: 2.31 LVOT LVOT Pk Phi: 1.11 LVOT Mn Phi: 0.69 LVOT VTI: 0.19 LVOT Pk Grad: 5.00 LVOT Mn Grad: 2.00 LVOT Diam: 2.10 LVOT Area: 3.46 Diastolic Function MV Pk E: 0.80 MV Pk A: 0.53 E/A: 1.50 E'Medial: 10.70 E/E' Med: 7.50 E' Laterial: 12.60 E/E' Lat: 6.40 Right Ventricle TAPSE (mm): 23.00 TVS' Phi: 12.10 Tricuspid Valve TR Pk Phi: 1.78 TR Pk Grad: 13.00 RA Press: 3.00 RVSP: 16.00 Great Vessels Aorta Sinus of Valsalva: 2.79 2.0-3.[address] [place]: 1.94 1.7-3.4 cm Ao Asc: 2.70 2.1-3.4 cm Updated in Other Vendor System with Status of Final Abraham Patterson MD electronically signed on 05/25/2024 4:08:01 PM with status of Final
[2024-05-25 10:00] LABS: Anion Gap 10 (12-20); Blood Urea Nitrogen 11 mg/dL (9-16); Calcium 9.2 mg/dL (8.4-10.2); Carbon Dioxide 26 mmol/L (22-29); Chloride 108 mmol/L (96-108); Estimated Glomerular Filt Rate > 60; Glucose Random 95 mg/dL (60-115); Potassium 3.3 mmol/L (3.3-5.1); Sodium 141 mmol/L (135-145)
== END ==
LOC: HO.CARD 08:48
PROVIDERS: Absent Provider Physician Assistant Surgical; PCP Internal Medicine; Visit Provider Surgery
DX: R94.31 Abnormal electrocardiogram [ECG] [EKG] (principal); E87.6 Hypokalemia
CPT/HCPCS: 36415; 80048; 93306

== ENCOUNTER → 2024-05-25 09:01 | Outpatient (BNV) | payer MEDICARE, SELFPAY | PROVIDERS: Absent Provider Physician Assistant Surgical; PCP Internal Medicine; Visit Provider Internal Medicine Cardiovascular Disease | DX: R94.31 Abnormal electrocardiogram [ECG] [EKG] (principal) | CPT/HCPCS: 93306 ==

== ENCOUNTER 2024-06-28 11:18 | Outpatient (AMB) | payer MEDICARE, SELFPAY ==
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
== END 2024-06-28 12:11 | disposition home or self-care (01) ==
LOC: HO.HBST 11:18
PROVIDERS: PCP Internal Medicine; Visit Provider Counselor Mental Health
DX: F41.9 Anxiety disorder, unspecified (principal)
CPT/HCPCS: 90791

== ENCOUNTER → 2024-06-28 11:18 | Outpatient (BNVA) | payer MEDICARE, SELFPAY | PROVIDERS: PCP Internal Medicine; Visit Provider Counselor Mental Health ==

== ENCOUNTER → 2024-07-01 09:04 | Outpatient (REF) | payer MEDICARE, SELFPAY ==
--- NOTE | ~2024-07-01 | NM_ITS ---
Lexiscan Myocardial perfusion study Indication: Preoperative cardiac evaluation Technique: The patient was brought in for a Lexiscan perfusion study on 07/01/2024 and was injected 0.4 mg of Lexiscan intravenously. Within a minute of this injection 40 mCi of sestamibi was given intravenously. Images were obtained using the SPECT gamma camera interlaced with the gating device. Images were obtained in supine position. Resting perfusion study not performed as patient did not return after multiple attempts. Images were processed with the software and compared side to side in short axis, horizontal long axis and vertical long axis views. Findings: Raw aquisition reviewed. The stress perfusion study showed diminished tracer uptake in the distal bilateral wall. There is improvement with CT attenuation correction suggestive of soft tissue attenuation artifact. The gated study shows normal LV systolic function with calculated LVEF of 59%. LV cavity is normal in size. The gated study shows normal wall thickening and contraction of segments. Resting study not performed as patient did not return. The findings are consistent with diffuse lateral perfusion defect that could be from soft tissue attenuation artifact. NM/NM cardiolite stress test Impression: 1. Myocardial perfusion imaging study shows no clear abnormalities based on stress acquisition only. Patient did not return for resting images. 2. Gated LVEF is 59% during stress. EKG component of the test reported separately. Electronically signed by: Esau Oliveira MD 07/27/2024 03:27 PM EDT
--- NOTE | 2024-07-01 09:08 | CA_ITS ---
Acquisition Time: 2024-07-01 09:15:11 Total Exercise Time: 00:02:00 Test Indications: Abnormal ECG Medications: SEE H Protocol: LEXISCAN Max HR: 121 BPM 65% of Pred: 185 BPM Max BP: 124/070 mmHG Max Work Load: 1.0 METS Pharmacological stress test with Lexiscan injection while sitting and kicking her legs, without anginal symptoms, without arrhythmias, with normotensive response to injection, with T wave inversion in leads 2, aVF, V3-V6. Aminophylline 75mg IVP given to reverse Lexiscan. Nuclear images pending. Test reviewed with Dr. Pereira. Referred By: Gm Mejia Overread By: Adamaris Roe
== END ==
LOC: HO.CARD 09:04
PROVIDERS: PCP Internal Medicine; Visit Provider Physician Assistant Surgical
DX: E66.01 Morbid (severe) obesity due to excess calories (principal)
CPT/HCPCS: 78452; 93017; A9500; J0280; J2785

== ENCOUNTER → 2024-07-01 09:08 | Outpatient (BNV) | payer MEDICARE, SELFPAY | PROVIDERS: PCP Internal Medicine; Visit Provider Nurse Practitioner | DX: Z01.810 Encounter for preprocedural cardiovascular examination (principal) | CPT/HCPCS: 78451; 93016; 93018 ==

== ENCOUNTER 2024-10-24 12:18 | Outpatient (REF) | payer MEDICARE, SELFPAY ==
--- OUTSIDE RECORDS SUMMARY | 2024-10-24 12:20 | XMS_ITS ---
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 Assessments Encounter Date Diagnosis (ICD Code) Assessment Notes Treatment Notes Treatment Clinical Notes Section Notes 10/20/2024 Disorder of kidney and ureter, unspecified (ICD-10 - N28.9) Plan Of Treatment Future Test Test Name Order Date US Renal and Bladder 12/26/2024 Next Appt Details Provider Name:Melissa Anton Kelly , 11/14/2024 10:30:00 AM, [address] [place] [address], [phone], Progress Notes * Namita DELEONDOB: [birth year] (34 yo F)Acc No.[id number]:10/20/2024 Patient:?Namita DELEON :1990???Age:34 Y???Sex:Female Address:[address] [place] [id number] Subjective: * Chief Complaints: * ???Results * Medical History:? * Surgical History:? * Hospitalization/Major Diagno stic Procedure:? * Medications:? Objective: * Vitals:? Past Vitals:* 09/28/2024 Temp:96.1F, HR:109/min, BP:1 38/86mm Hg, Ht:5' 3 , Oxygen sat %:97% * 09/07/2024 Temp:97.8F, HR:95/min, BP:12 2/68mm Hg, Wt:258lbs, Ht:5' 3 , Oxygen sat %:98% * 06/08/2024 Temp:96.1F, HR:95/min, BP:12 4/78mm Hg, Wt:256.00lbs, Ht:5' 3 , Oxygen sat %:98% * Physical Examination:? Assessment: * Assessment: 1.?Disorder of kidney and ur eter, unspecified - N28.9 (Primary)??? Plan: * Treatment: * Procedure Codes:? * * Date:?
--- OUTSIDE RECORDS SUMMARY | 2024-10-24 12:21 | XMS_ITS ---
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 Name Role Phone Melissa Kelly Primary Care Provider REASON FOR VISIT RE:Reasonable accommodation form Encounters Encounter Location Date Provider Diagnosis Zaki Villagomez MD [address] [place] [address] [place] [phone] 10/12/2024 Melissa Kelly Plan Of Treatment Next Appt Details Provider Name:Melissa Kelly , 11/14/2024 10:30:00 AM, [address] [place] [address], [phone], Progress Notes * Namita DELEONDOB: [birth year] (34 yo F)Acc No.[id number]:10/12/2024 Patient:?Namita DELEON :1990???Age:34 Y???Sex:Female Address:[address] [place] [id number] * true * Date:? Generated for Printi estephania/Filiberto/eTransmitting on:?10/24/2024 12:20 PM EST
--- OUTSIDE RECORDS SUMMARY | 2024-10-24 12:21 | XMS_ITS | Patient Health Record ---
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 Name Role Phone Melissa Kelly Primary Care Provider [phone] Allergies Allergen (clinical drug ingredient) Drug/Non Drug Allergy documented on EMR Reaction Allergy Type Onset Date Status etanercept Enbrel hives at site, itch Drug Allergy Active Humira hives at site, itch Drug Allergy Active venlafaxine Venlafaxine HCl throat swelling Drug Allergy Active sarilumab Kevzara Unknown Drug Allergy Active Results Component Value Reference Range Notes CR Chest Routine 2 Views Reviewed date:10/17/2024 04:26:32 PM Interpretation: Performing Lab: Notes/Report: Pulmonary Function Test Reviewed date:10/20/2024 04:43:21 PM Interpretation: Performing Lab: Notes/Report: Ultrasound : Kidneys and Terrance dder Reviewed date:10/17/2024 04:26:49 PM Interpretation: Performing Lab: Notes/Report: Comp. Metabolic Panel (14)-3 75070 Reviewed date:06/15/2024 02:16:22 PM Interpretation: Performing Lab:[facility], [address] [place] [address], [place], Phone - [phone], Director - Anabella Notes/Report: Test(s) 072829-Qqs. B1, Whole Blood was developed and its performance characteristics determined by [facility]. It has not been cleared or approved by the Food and Drug Administration. Glucose 84 70-99 mg/dL BUN 14 6-20 mg/dL Creatinine 0.80 0.57-1.00 mg/dL eGFR 98 >59 mL/min/1.73 BUN/Creatinine Ratio 18 9-23 Sodium 140 134-144 mmol/L Potassium 3.5 3.5-5.2 mmol/L Chloride 102 96-106 mmol/L Carbon Dioxide, Total 23 20-29 mmol/L Calcium 9.4 8.7-10.2 mg/dL Protein, Total 7.0 6.0-8.5 g/dL Albumin 3.9 3.9-4.9 g/dL Globulin, Total 3.1 1.5-4.5 g/dL Bilirubin, Total 0.6 0.0-1.2 mg/dL Alkaline Phosphatase 59 44-121 IU/L AST (SGOT) 20 0-40 IU/L ALT (SGPT) 20 0-32 IU/L Hemoglobin A1C Reviewed date:06/08/2024 10:23:27 AM Interpretation: Performing Lab: Notes/Report: DCA Seltzer 2 (DCA Seltzer 2), [facility] Lot: [id number] Comp. Metabolic Panel (14)-3 Reviewed date:04/22/2024 12:39:18 PM Interpretation: Performing Lab:[facility], [address] [place] [address], [place], Phone - [phone], Director - Anabella Notes/Report: Glucose 89 70-99 mg/dL BUN 16 6-20 mg/dL Creatinine 0.82 0.57-1.00 mg/dL eGFR 96 >59 mL/min/1.73 BUN/Creatinine Ratio 20 9-23 Sodium 139 134-144 mmol/L Potassium 3.8 3.5-5.2 mmol/L Chloride 102 96-106 mmol/L Carbon Dioxide, Total 22 20-29 mmol/L Calcium 9.9 8.7-10.2 mg/dL Protein, Total 7.5 6.0-8.5 g/dL Albumin 4.2 3.9-4.9 g/dL Globulin, Total 3.3 1.5-4.5 g/dL A/G Ratio 1.3 Bilirubin, Total 0.6 0.0-1.2 mg/dL Alkaline Phosphatase 61 44-121 IU/L AST (SGOT) 18 0-40 IU/L ALT (SGPT) 28 0-32 IU/L Hemoglobin A1C Reviewed date:11/05/2023 12:44:38 PM Interpretation: Performing Lab: Notes/Report: DCA Seltzer (DCA Seltzer), [facility] Lot: [id number] Eye Exam Reviewed date:05/19/2024 01:28:15 PM Interpretation: Performing Lab: Notes/Report: CBC With Differential/Platel et-[id number] Reviewed date:09/14/2024 10:46:34 PM Interpretation: Performing Lab:[facility], [address], [place], Phone - [phone], Director - Anabella Notes/Report: WBC 7.3 3.4-10.8 x10E3/uL RBC 5.32 3.77-5.28 x10E6/uL Hemoglobin 14.6 11.1-15.9 g/dL Hematocrit 45.1 34.0-46.6 % MCV 85 79-97 fL MCH 27.4 26.6-33.0 pg MCHC 32.4 31.5-35.7 g/dL RDW 14.0 11.7-15.4 % Platelets 298 150-450 x10E3/uL Neutrophils 42 Not Estab. % Lymphs 41 Not Estab. % Monocytes 12 Not Estab. % Eos 4 Not Estab. % Basos 1 Not Estab. % Neutrophils (Absolute) 3.1 1.4-7.0 x10E3/uL Lymphs (Absolute) 3.0 0.7-3.1 x10E3/uL Monocytes(Absolute) 0.9 0.1-0.9 x10E3/uL Eos (Absolute) 0.3 0.0-0.4 x10E3/uL Baso (Absolute) 0.1 0.0-0.2 x10E3/uL Immature Granulocytes 0 Not Estab. % Immature Grans (Abs) 0.0 0.0-0.1 x10E3/uL Hemoglobin A1C Reviewed date:09/07/2024 10:29:46 AM Interpretation: Performing Lab: Notes/Report: BAKARI Tran (DCA Seltzer), [facility] Lot: [id number] MMR (MEASLES, MUMPS, RUBELLA ) IGG TITER Reviewed date:12/15/2023 11:02:05 AM Interpretation: Performing Lab:Testing performed or reported by [facility], a Service of [facility], [address], [place] [address] Thierry Sanchez MD, Video Games Storywriter [facility]# [id number] Notes/Report: RUBEOLA AB IGG POSITIVE (POS) Indicates prior exposure or immunity. Testing performed by the [employer] 2200 multiplex flow immunoassay system MUMPS AB IGG POSITIVE (POS) Indicates prior exposure or immunity. Testing performed by the [employer] 2200 multiplex flow immunoassay system RUBELLA IGG ANTIBODY POSITIVE (POS) Indicates prior exposure or immunity. Testing performed by the [employer] 2200 multiplex flow immunoassay system ANTI-HEPATITIS C W/RFLX HCV QNT Reviewed date:12/09/2023 11:31:51 AM Interpretation: Performing Lab:Testing performed or reported by [facility], a Service of [facility], [facility] [place] [address] Thierry Sanchez MD, Video Games Storywriter DREW# [id number] Notes/Report: ANTI-HEPATITIS C NEGATIVE (NEG) Reference range: Negative This test was performed on the [employer] immunoassay system. UA/M w/rflx Culture, Routine -[id number] Reviewed date:09/14/2024 10:46:34 PM Interpretation: Performing Lab:[facility], [address] [facility], Phone - [phone], Director - Anabella Notes/Report: Specific Protivin 1.023 1.005-1.030 pH 6.5 5.0-7.5 Urine-Color Yellow Yellow Appearance Cloudy Clear WBC Esterase 1+ Negative Protein Trace Negative/Trace Glucose Negative Negative Ketones Negative Negative Occult Blood 1+ Negative Bilirubin Negative Negative Urobilinogen,Semi-Qn 0.2 0.2-1.0 mg/dL Nitrite, Urine Negative Negative Microscopic Examination See below: Micr oscopic was indicated and was performed. Urinalysis Reflex This speci men has reflexed to a Urine Culture. WBC 6-10 0 - 5 /hpf RBC 0-2 0 - 2 /hpf Epithelial Cells (non renal) >10 0 - 10 /hpf Casts None seen None seen /lpf Bacteria Moderate None seen/Few Urine Culture, Routine Final report Result 1 Culture shows less than 10,000 colony forming units of bacteria per milliliter of urine. This colony count is not generally considered to be clinically significant. Comp. Metabolic Panel (14)-3 Reviewed date:09/14/2024 10:46:34 PM Interpretation: Performing Lab:[facility], [address] [facility], [place], Phone - [phone], Director - Anabella Notes/Report: Glucose 85 70-99 mg/dL BUN 10 6-20 mg/dL Creatinine 0.81 0.57-1.00 mg/dL eGFR 97 >59 mL/min/1.73 BUN/Creatinine Ratio 12 9-23 Sodium 140 134-144 mmol/L Potassium 3.6 3.5-5.2 mmol/L Chloride 101 96-106 mmol/L Carbon Dioxide, Total 18 20-29 mmol/L Calcium 9.5 8.7-10.2 mg/dL Protein, Total 7.0 6.0-8.5 g/dL Albumin 4.0 3.9-4.9 g/dL Globulin, Total 3.0 1.5-4.5 g/dL Bilirubin, Total 0.5 0.0-1.2 mg/dL Alkaline Phosphatase 62 44-121 IU/L AST (SGOT) 23 0-40 IU/L ALT (SGPT) 21 0-32 IU/L Albumin/Creatinine Ratio,Uri ne-[id number] Reviewed date:09/14/2024 10:46:34 PM Interpretation: Performing Lab:[facility] [place], [address] [place] [address], Phone - [phone], Director - Anabella Notes/Report: Creatinine, Urine 212.2 Not Estab. mg/dL Albumin, Urine 26.3 Not Estab. ug/mL Alb/Creat Ratio 12 0-29 mg/g creat Normal: 0 - 29 Moderately increased: 30 - 300 Severely increased: >300 IMGEAP Reviewed date:10/12/2024 06:21:59 PM Interpretation: Performing Lab: Notes/Report: See Note [facility], a member of [employer] History: Chronic cough. Comparison: No comparison imaging at this institution. Findings: PA and lateral views. The cardiomediastinal silhouette, hilar contours and pulmonary vascularity are within normal limits. The lungs are clear. The costophrenic angles are sharp. Bones and soft tissues are unremarkable. IMPRESSION: Impression: Normal chest. [id number] -------- FINAL REPORT -------- Dictated By: Jodi Davis Dictated Date: 10/12/2024 13:16 ET Assigned Physician: Jodi Davis Reviewed and Electronically Signed By: Jodi Davis Signed Date: 10/12/2024 13:17 ET Workstation ID: [id number] Transcribed By: Self Edit Transcribed Date: 10/12/2024 13:16 ET See Note History: Chronic cough. Comparison: No chata rison imaging at this institution. Findings: PA and lateral views . The cardiomediastinal silhouette, hilar contours and pulmonary vascularity are within normal limits. The lungs are clear. The costophrenic angles are sharp. Bones and soft tissues are unremarkable. IMPRESSION: Impression: Normal chest. [id number] -------- FINAL REPOR T -------- Dictated By: Jodi Jules i Dictated Date: 10/12 13:16 ET Assigned Physician: Jodi Davis Reviewed and Electronically Signed By: Jodi Davis Signed Date: 13:17 ET Workstation ID: [id number] Transcribed By: Self Edit Transcribed Date: 10/12/2024 13:16 ET MM Digital Mammo Bilateral Reviewed date:05/04/2024 10:10:27 PM Interpretation: Performing Lab: Notes/Report: PROCEDURE: MM Digital Mammo Bilateral, US Breast Axillary Bilat INDICATION: Bilateral breast pain. Palpable abnormality and pain 8-10:00 position right breast, and 12-3:00 position left breast. COMPARISON: This is patient's baseline exam.. TECHNIQUE: Routine mammographic images of both breast with repeat mammography and computer-aided detection FINDINGS: Density: The breast tissue is almost entirely fatty. There is no worrisome mass. There is no architectural distortion. There is no suspicious grouping of calcifications. Right breast ultrasound an area of pain and fullness 8 clock -10:00 position shows no abnormality. Left breast ultrasound and area of pain and fullness 12:00-3:00 position shows no abnormality. IMPRESSION: 1. No mammographic evidence of malignancy. 2. No mammographic or ultrasound abnormality to correlate with areas of pain and palpable fullness. 3. Further evaluation of patient's signs and symptoms should be on a clinical basis. RECOMMENDATION: Clinical follow-up and management BI-RADS: 1 (Negative) Lay letter mailed to patient WSN: [id number] Ordering Physician: Melissa Kelly Dictated By: Darnell VILLALOBOS, Kye Manrique PROCEDURE: MM Digita l Mammo Bilateral, US Breast Axillary Bilat INDICATION: Bilatera l breast pain. Palpable abnormality and pain 8-10:00 position right breast, and 12-3:00 position left breast. COMPARISON: This is patient's baseline exam.. TECHNIQUE: Routine mammographic images of both breast with repeat mammography and computer-aided detection FINDINGS: Density: The breast tissue is almost entirely fatty. There is no worrisom e mass. There is no architec tural distortion. There is no suspicio us grouping of calcifications. Right breast ultraso und an area of pain and fullness 8 clock -10:00 position shows no abnormality. Left breast ultrasou nd and area of pain and fullness 12:00-3:00 position shows no abnormality. IMPRESSION: 1. No mammographic evidence of malignancy. 2. No mammographic o r ultrasound abnormality to correlate with areas of pain and palpable fullness. 3. Further evaluatio n of patient's signs and symptoms should be on a clinical basis. RECOMMENDATION: Clin ical follow-up and management BI-RADS: 1 (Negative) Lay letter mailed to patient WSN: [id number] Ordering Physician: Melissa Kelly Urinalysis, Complete-[id number] Reviewed date:02/02/2024 01:31:46 PM Interpretation: Performing Lab:[facility], [facility], [place], Phone - [phone], Director - Anabella Notes/Report: Specific Protivin 1.020 1.005-1.030 pH 6.5 5.0-7.5 Urine-Color Yellow Yellow Appearance Clear Clear WBC Esterase Negative Negative Protein Negative Negative/Trace Glucose Negative Negative Ketones Negative Negative Occult Blood Trace Negative Bilirubin Negative Negative Urobilinogen,Semi-Qn 0.2 0.2-1.0 mg/dL Nitrite, Urine Negative Negative Microscopic Examination See below: Micr oscopic was indicated and was performed. WBC 0-5 0 - 5 /hpf RBC 0-2 0 - 2 /hpf Epithelial Cells (non renal) 0-10 0 - 10 /hpf Casts None seen None seen /lpf Bacteria Few None seen/Few Albumin/Creatinine Ratio,Uri ne-[id number] Reviewed date:02/02/2024 01:31:46 PM Interpretation: Performing Lab:[facility], [address] [facility], Phone - [phone], Director - Anabella Notes/Report: Creatinine, Urine 110.1 Not Estab. mg/dL Albumin, Urine 25.2 Not Estab. ug/mL Alb/Creat Ratio 23 0-29 mg/g creat Normal: 0 - 29 Moderately increased: 30 - 300 Severely increased: >300 PDF Report Reviewed date:02/02/2024 01:31:46 PM Interpretation: Performing Lab:[facility] [place], Phone - [phone], Director Vandana Kyle Notes/Report: PDF Report Reviewed date:04/15/2024 07:14:41 AM Interpretation: Performing Lab:[facility], [address] [facility] [place], Phone - [phone], Director Vandana Kyle Notes/Report: Hemoglobin A1C Reviewed date:02/01/2024 11:35:36 AM Interpretation: Performing Lab: Notes/Report: DCA Seltzer 2 (DCA Seltzer 2), [facility] Lot: [id number] PDF Report Reviewed date:06/15/2024 02:16:22 PM Interpretation: Performing Lab:[facility], [facility] [place], Phone - [phone], Director Vandana Kyle Notes/Report: Test(s) 957567-Rkw. B1, Whole Blood was developed and its performance characteristics determined by [facility]. It has not been cleared or approved by the Food and Drug Administration. US Breast Axillary Bilat Reviewed date:05/04/2024 10:10:27 PM Interpretation: Performing Lab: Notes/Report: PROCEDURE: MM Digital Mammo Bilateral, US Breast Axillary Bilat INDICATION: Bilateral breast pain. Palpable abnormality and pain 8-10:00 position right breast, and 12-3:00 position left breast. COMPARISON: This is patient's baseline exam.. TECHNIQUE: Routine mammographic images of both breast with repeat mammography and computer-aided detection FINDINGS: Density: The breast tissue is almost entirely fatty. There is no worrisome mass. There is no architectural distortion. There is no suspicious grouping of calcifications. Right breast ultrasound an area of pain and fullness 8 clock -10:00 position shows no abnormality. Left breast ultrasound and area of pain and fullness 12:00-3:00 position shows no abnormality. IMPRESSION: 1. No mammographic evidence of malignancy. 2. No mammographic or ultrasound abnormality to correlate with areas of pain and palpable fullness. 3. Further evaluation of patient's signs and symptoms should be on a clinical basis. RECOMMENDATION: Clinical follow-up and management BI-RADS: 1 (Negative) Lay letter mailed to patient WSN: [id number] Ordering Physician: Melissa Kelly Dictated By: Kye Patrick MD PROCEDURE: MM Digita l Mammo Bilateral, US Breast Axillary Bilat INDICATION: Bilatera l breast pain. Palpable abnormality and pain 8-10:00 position right breast, and 12-3:00 position left breast. COMPARISON: This is patient's baseline exam.. TECHNIQUE: Routine mammographic images of both breast with repeat mammography and computer-aided detection FINDINGS: Density: The breast tissue is almost entirely fatty. There is no worrisom e mass. There is no architec tural distortion. There is no suspicio us grouping of calcifications. Right breast ultraso und an area of pain and fullness 8 clock -10:00 position shows no abnormality. Left breast ultrasou nd and area of pain and fullness 12:00-3:00 position shows no abnormality. IMPRESSION: 1. No mammographic evidence of malignancy. 2. No mammographic o r ultrasound abnormality to correlate with areas of pain and palpable fullness. 3. Further evaluatio n of patient's signs and symptoms should be on a clinical basis. RECOMMENDATION: Clin ical follow-up and management BI-RADS: 1 (Negative) Lay letter mailed to patient WSN: [id number] Ordering Physician: Melissa Kelly Vitamin B1 (Thiamine), Blood -[id number] Reviewed date:06/15/2024 02:16:22 PM Interpretation: Performing Lab:[facility], [address] [place] [address], Phone - [phone], Director - Anabella Notes/Report: Test(s) 704704-Ttp. B1, Whole Blood was developed and its performance characteristics determined by [facility]. It has not been cleared or approved by the Food and Drug Administration. Vit. B1, Whole Blood 88.2 66.5-200.0 nmol/L Vitamin [id number] Reviewed date:06/15/2024 02:16:21 PM Interpretation: Performing Lab:[facility] [address] [place] [address], Phone - [phone], Director - Anabella Notes/Report: Test(s) 852282-Hbq. B1, Whole Blood was developed and its performance characteristics determined by [facility]. It has not been cleared or approved by the Food and Drug Administration. Vitamin B12 [id number] pg/mL PDF Report Reviewed date:04/22/2024 12:39:18 PM Interpretation: Performing Lab:[facility] [place], [address] [place] [address], Phone - [phone], Director - Anabella Notes/Report: IMGEAP Reviewed date:10/10/2024 05:07:32 PM Interpretation: Performing Lab: Notes/Report: See Note [facility], a member of [facility] EXAM: RENAL and BLADDER ULTRASOUND INDICATION: History of urinary calculi. Microscopic hematuria. FINDINGS: ULTRASOUND OF THE KIDNEYS AND BLADDER. KIDNEYS: RIGHT: Size: 11.8 cm in greatest length. Collecting system: There is no dilation of the intrarenal collecting system Contour: The renal contour is smooth Cortical thickness: Within normal limits Cortical echogenicity: The cortical echogenicity is within normal limits Masses: There are no suspicious renal masses. Shadowing calculi: There are no shadowing calculi demonstrated Other: While scanning the right kidney no is made of increased hepatic echogenicity. This could be related to fatty change. LEFT: Size: 12.5 cm in greatest length Collecting system: There is no dilation of the intrarenal collecting system Contour: The renal contour is smooth Cortical thickness: There is an area in the interpolar left kidney which distorts the central sinus echoes. This is isoechoic to the cortex and there is no well- defined margin. There is no suspicious abnormal color signal. Cortical echogenicity: The cortical echogenicity is within normal limits Masses: There are no other suspicious renal masses. Shadowing calculi: There are no shadowing calculi demonstrated Other: No other significant findings BLADDER: No focal bladder mass calculus or diverticulum. Color mapping demonstrates bilateral ureteral jets Pre-void volume 220 mL Post void volume of 5 mL IMPRESSION: There is no shadowing calculus on either side. There is no dilation of the collecting system to suggest obstruction. There is a subtle abnormality in the central aspect of the mid left kidney. This is isoechoic to cortex. This is equivocally present at the time of CT 10/09/2023. I favor a column of Michael/normal variant. Recommend follow-up ultrasound in 3 months. -------- FINAL REPORT -------- Dictated By: Kerwin Amaro Dictated Date: 10/10/2024 14:26 ET Assigned Physician: Kerwin Amaro Reviewed and Electronically Signed By: Kerwin Amaro Signed Date: 10/10/2024 14:32 ET Workstation ID: [id number] Transcribed By: Self Edit Transcribed Date: 10/10/2024 14:26 ET See Note EXAM: RENAL and BLAD LC ULTRASOUND INDICATION: History of urinary calculi. Microscopic hematuria. FINDINGS: ULTRASOUND OF THE KIDNEYS AND BLADDER. KIDNEYS: RIGHT: Size: 11.8 cm in gre atest length. Collecting system: T here is no dilation of the intrarenal collecting system Contour: The renal contour is smooth Cortical thickness: Within normal limits Cortical echogenicit y: The cortical echogenicity is within normal limits Masses: There are no suspicious renal masses. Shadowing calculi: T here are no shadowing calculi demonstrated Other: While scannin g the right kidney no is made of increased hepatic echogenicity. This could be related to fatty change. LEFT: Size: 12.5 cm in gre atest length Collecting system: T here is no dilation of the intrarenal collecting system Contour: The renal contour is smooth Cortical thickness: There is an area in the interpolar left kidney which distorts the central sinus echoes. This is isoechoic to the cortex and there is no well-defined margin. There is no suspicious abnormal color signal. Cortical echogenicit y: The cortical echogenicity is within normal limits Masses: There are no other suspicious renal masses. Shadowing calculi: T here are no shadowing calculi demonstrated Other: No other significant findings BLADDER: No focal bl adder mass calculus or diverticulum. Color mapping demonstrates bilateral ureteral jets Pre-void volume 220 mL Post void volume of 5 mL IMPRESSION: There is no shadowin g calculus on either side. There is no dilation of the collecting system to suggest obstruction. There is a subtle abnormality in the central aspect of the mid left kidney. This is isoechoic to cortex. This is equivocally present at the time of CT 10/09/2023. I favor a column of Michael/normal variant. Recommend follow-up ultrasound in 3 months. -------- FINAL REPOR T -------- Dictated By: Kerwin Malin Dictated Date: 10/10 14:26 ET Assigned Physician: Kerwin Amaro Reviewed and Electronically Signed By: Kerwin Amaro Signed Date: 14:32 ET Workstation ID: [id number] Transcribed By: Self Edit Transcribed Date: 10/10/2024 14:26 ET US Liver Reviewed date:01/09/2024 03:04:14 PM Interpretation: Performing Lab: Notes/Report: Hemoglobin A1C Reviewed date:03/28/2024 10:30:39 AM Interpretation: Performing Lab: Notes/Report: DCA Seltzer (DCA Seltzer), [facility] Lot: [id number] Uric Acid-[id number] Reviewed date:04/15/2024 07:14:41 AM Interpretation: Performing Lab:[facility], [address] [place] [address], Phone - [phone], Director - MDBilly Notes/Report: Uric Acid 4.8 2.6-6.2 mg/dL Therapeutic ta rget for gout patients: <6.0 CBC With Differential/Platel et-[id number] Reviewed date:04/15/2024 07:14:41 AM Interpretation: Performing Lab:[facility], [address] [facility], Phone - [phone], Director - MDAriellay Notes/Report: WBC 12.2 3.4-10.8 x10E3/uL RBC 5.03 3.77-5.28 x10E6/uL Hemoglobin 14.7 11.1-15.9 g/dL Hematocrit 45.0 34.0-46.6 % MCV 90 79-97 fL MCH 29.2 26.6-33.0 pg MCHC 32.7 31.5-35.7 g/dL RDW 13.9 11.7-15.4 % Platelets 325 150-450 x10E3/uL Neutrophils 63 Not Estab. % Lymphs 25 Not Estab. % Monocytes 8 Not Estab. % Eos 2 Not Estab. % Basos 1 Not Estab. % Neutrophils (Absolute) 7.7 1.4-7.0 x10E3/uL Lymphs (Absolute) 3.1 0.7-3.1 x10E3/uL Monocytes(Absolute) 1.0 0.1-0.9 x10E3/uL Eos (Absolute) 0.2 0.0-0.4 x10E3/uL Baso (Absolute) 0.1 0.0-0.2 x10E3/uL Immature Granulocytes 1 Not Estab. % Immature Grans (Abs) 0.1 0.0-0.1 x10E3/uL B-Type Natriuretic Peptide-1 [id number] Reviewed date:04/15/2024 07:14:41 AM Interpretation: Performing Lab:[facility], [address] [facility], Phone - [phone], Director - MDJodry Notes/Report: B-Type Natriuretic Peptide 15.1 0.0-100.0 pg/mL Siemens [employer] XP methodology Comp. Metabolic Panel (14)-3 Reviewed date:04/15/2024 07:14:41 AM Interpretation: Performing Lab:[facility], [address] [facility], [place], Phone - [phone], Director - MDJodry Notes/Report: Glucose 84 70-99 mg/dL BUN 14 6-20 mg/dL Creatinine 0.88 0.57-1.00 mg/dL eGFR 88 >59 mL/min/1.73 BUN/Creatinine Ratio 16 9-23 Sodium 140 134-144 mmol/L Potassium 4.1 3.5-5.2 mmol/L Chloride 103 96-106 mmol/L Carbon Dioxide, Total 22 20-29 mmol/L Calcium 9.7 8.7-10.2 mg/dL Protein, Total 6.9 6.0-8.5 g/dL Albumin 4.1 3.9-4.9 g/dL Globulin, Total 2.8 1.5-4.5 g/dL A/G Ratio 1.5 1.2-2.2 Bilirubin, Total 0.6 0.0-1.2 mg/dL Alkaline Phosphatase 63 44-121 IU/L AST (SGOT) 16 0-40 IU/L ALT (SGPT) 20 0-32 IU/L Reason For Referral Reason can we refer patient to [facility]'s weight management program, Dr. Cruz [phone] Diagnosis 1 Body mass index [BMI ] 45.0-49.9, adult (Z68.42) Referral Organization [facility] Referring Provider First Name Melissa Referring Provider Last Name Robin Referring Provider Speciality Nurse Prac joeioner Referred Provider Specialty Other Medica l Care General Notes [facility] Anton 09:37:51 AM >[phone], [facility] 01/20/2024 09:39:57 AM > Spoke to [place] [phone] Referral Priority Routine Reason bilateral toe nail f ungus Faxed Diagnosis 1 Tinea unguium (B35.1 ) Referral Organization [facility] Referring Provider First Name Melissa Referring Provider Last Name Robin Referring Provider Speciality Nurse Prac joeioner Referred Provider Ever Cain III Referred Provider Specialty Orthopedic S urgery General Notes [facility] 09/2024 04:53:46 PM > faxed referral, [facility] 03/01/2024 11:19:35 AM >[id number], [facility] Anton 03/01/2024 11:20:48 AM > patient 05/04 at 11:00am with Dr allred, [facility] 03/01/2024 11:26:21 AM > Clinical Notes [facility] 11:26:23 AM >Patient Information, View ID Card, Patient Name, Namita Pancho, Plan Description, [facility], Date of , 1990, Group Number, [id number], Gender, Female, Effective - Term Dates, 11/09/2023 - 11/08/2024, Plan & Provider Verification, Verifying Referral Requirements, Patient's Plan Does Not Require a Referral, Patient's Primary Care Provider, Zaki Villagomez MD, Primary Care Provider's TIN, --- Referral Priority Routine Referral Appointment Date 05/04/2024 Medications Medication SIG (Take, Route, Frequency, Duration) Notes Start Date End Date Status Symbicort 80-4.5 MCG/ACT 1 puff as neede d Inhalation Twice a day for 30 days 09/28/2024 11/27/2024 Active Vitamin D3 50 MCG (1999 UT) TAKE ONE CAPSULE BY MOUTH ONCE DAILY for 90 Active Indapamide 2.5 MG 1 tablet in the morn ing Orally Once a day for 30 days Active Triamcinolone Acetonide 0.025 % 1 application Externally Once a day for 30 days 06/08/2024 Active Meloxicam 15 MG TAKE 1 TABLET BY GABE TH EVERY DAY Oral for 30 Days Active Methotrexate 2.5 MG TAKE 10 TABLETS BY M OUTH ONCE WEEKLY Oral for 28 Days Active Ferrous Sulfate 325 (65 Fe) MG TAKE ONE TABLET BY MOUTH ONCE DAILY for 90 Active Gabapentin 300 MG 1 capsule Oral Once a day for 30 days Active Ramipril 2.5 MG TAKE ONE CAPSULE BY MOUTH ONCE DAILY Orally Once a day for 90 days Active Magnesium Oxide -Mg Supplement 400 MG TAKE ONE CAPSULE BY MOUTH ONCE DAILY AT BEDTIME for 90 Active hydrOXYzine HCl 25 MG Oral for 20 Days Active buPROPion HCl 100 MG Oral for 30 Days Active FreeStyle April 2 Sensor - apply sensor every 14 days DX:E11.22 for 28 days 09/29/2023 Active FreeStyle April 3 Sensor - as directed for 90 days 09/18/2023 Active Folic Acid 1 MG TAKE 1 TABLET BY GABE TH EVERY DAY Oral for 90 Days Active Loratadine 10 MG 1 tablet Orally Once a day for 30 day(s) Active Inflectra 100 MG 1300mg Intravenous e very 4 weeks Active oxyCODONE HCl 10 MG 1 tablet as needed O ral Every 4 hrs for 28 days Active Immunizations Vaccine Route Administration Date Status Comme nts *Rdairsttb-Srdx-AK Unknown 08/03/2023 Administered *PREVNAR 20 IM Intramuscular 09/28/2023 Administered *Td Unknown 12/16/2023 Refused *Tdap IM Intramuscular 02/01/2024 Administered Social History Tobacco Use: Social History Observation Description Date Details (start date - stop date) Current Smoker 08/09/2007 - NA Tobacco Use/Smoking Question Answer Notes Are you a current smoker when did you start smoking 08/09/2007 How often do you smoke cigarettes? every day How many cigarettes a day do you smoke? 11-20 How soon after you wake up do you smoke your fir st cigarette? within 5 minutes Are you interested in quitting? Ready to quit Alcohol Screen (Audit-C) Question Answer Notes Did you have a drink contain ing alcohol in the past year? Yes How often did you have a dri nk containing alcohol in the past year? Monthly or less (1 point) How many drinks did you have on a typical day when you were drinking in the past year? 1 or 2 drinks (0 point) How often did you have 6 or more drinks on one occasion in the past year? Never (0 point) Points 1 Interpretation Negative Problems Problem Type SNOMED Code ICD Code Onset Dates Problem Status W/U Status Risk Notes Problem Hyperglycemia due to type 2 diabetes mellitus (369769271561507) Type 2 diabetes mellitus with hyperglycemia (E11.65) Active confirmed Problem Type II diabetes mellitus without complication (955840404) Type 2 diabetes mellitus without complications (E11.9) Active confirmed Problem Vitamin D deficiency (50230205) Vitamin D deficiency, unspecified (E55.9) Active confirmed Problem Morbid obesity (disorder) (319558214) Morbid (severe) obesity due to excess calories (E66.01) Active confirmed Problem Tobacco user (759499039) Nicotine dependence, cigarettes, uncomplicated (F17.210) Active confirmed Problem Environmental sleep disorder (951081396) Other sleep disorders not due to a substance or known physiological condition (F51.8) Active confirmed Problem Pica of infancy and childhood (746297985) 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) Active confirmed Problem Chronic kidney disease due to hypertension (105972202479397) Hypertensive chronic kidney disease with stage 1 through stage 4 chronic kidney disease, or unspecified chronic kidney disease (I12.9) Active confirmed Problem NAVAS - Nonalcoholic steatohepatitis (701772854) Nonalcoholic steatohepatitis (NAVAS) (K75.81) Active confirmed Problem Atopic dermatitis (48241463) Atopic dermatitis, unspecified (L20.9) Active confirmed Problem Rheumatoid arthritis (86811825) Rheumatoid arthritis with rheumatoid factor, unspecified (M05.9) Active confirmed Problem Rheumatoid arthritis (24633871) Other specified rheumatoid arthritis, multiple sites (M06.89) Active confirmed Problem Sciatica (35358842) Lumbago with sciatica, right side (M54.41) Active confirmed Problem Sciatica (80437364) Lumbago with sciatica, left side (M54.42) Active confirmed Problem Chronic kidney disease stage 1 (559010448) Chronic kidney disease, stage 1 (N18.1) Active confirmed Problem Calculus of kidney (89318556) Calculus of kidney (N20.0) Active confirmed Problem Disorder of breast (16243555) Other specified disorders of breast (N64.89) Active confirmed Problem Obstructive sleep apnea syndrome (disorder) (30042402) Obstructive sleep apnea (adult) (pediatric) (G47.33) Active confirmed Problem Body mass index 40+ - severely obese (697442470) Body mass index [BMI] 45.0-49.9, adult (Z68.42) Active confirmed Problem Body mass index 40+ - morbidly obese (159392089) Body mass index [BMI] 50.0-59.9, adult (Z68.43) Active confirmed Problem Essential hypertension (19489840) Essential (primary) hypertension (I10) Problem resolved confirmed Vital Signs Heart Rate 109 /min 09/28/2024 Temperature 96.1 degrees Fahrenheit 09/28/2024 Oximetry 97 % 09/28/2024 Blood pressure diastolic 86 mm Hg 09/28/2024 Height 5' 3 in 09/28/2024 Blood pressure systolic 138 mm Hg 09/28/2024 Weight 258 lbs 09/07/2024 BMI 46.05 kg/m2 04/21/2024 Encounters Encounter Location Date Provider Diagnosis Zaki Villagomez MD [address] [id number] 11/05/2023 Melissa Kelly Type 2 diabetes peter itus with hyperglycemia E11.65 ; Encounter for general adult medical examination without abnormal findings Z00.00 ; Hypertensive chronic kidney disease with stage 1 through stage 4 chronic kidney disease, or unspecified chronic kidney disease I12.9 ; Calculus of kidney N20.0 ; Rheumatoid arthritis with rheumatoid factor, unspecified M05.9 ; Obstructive sleep apnea (adult) (pediatric) G47.33 ; Personal history of nicotine dependence Z87.891 ; Lumbago with sciatica, right side M54.41 ; Vitamin D deficiency, unspecified E55.9 ; Encounter for screening for cardiovascular disorders Z13.6 ; Encounter for immunization Z23 ; Encounter for antibody response examination Z01.84 ; Encounter for screening for other viral diseases Z11.59 ; Encounter for screening for malignant neoplasm of cervix Z12.4 and Encounter for screening examination for other mental health and behavioral disorders Z13.39 Zaki Villagomez MD [address] [id number] 12/16/2023 Melissa Kelly Type 2 diabetes peter itus with hyperglycemia E11.65 ; Hypertensive chronic kidney disease with stage 1 through stage 4 chronic kidney disease, or unspecified chronic kidney disease I12.9 ; Calculus of kidney N20.0 ; Elevation of levels of liver transaminase levels R74.01 ; Muscle spasm of back M62.830 ; Encounter for immunization Z23 and Immunization not carried out because of patient refusal Z28.21 Zaki Villagomez MD [address] [id number] 01/13/2024 Melissa Kelly Type 2 diabetes peter itus with hyperglycemia E11.65 ; Chronic kidney disease, stage 1 N18.1 ; Elevation of levels of liver transaminase levels R74.01 ; Muscle spasm of back M62.830 ; Body mass index [BMI] 45.0-49.9, adult Z68.42 ; Morbid (severe) obesity due to excess calories E66.01 ; Nonalcoholic steatohepatitis (NAVAS) K75.81 and Rheumatoid arthritis with rheumatoid factor, unspecified M05.9 Zaki Villagomez MD [address] [id number] 02/01/2024 Melissa Kelly Type 2 diabetes peter itus with hyperglycemia E11.65 ; Chronic kidney disease, stage 1 N18.1 ; Elevation of levels of liver transaminase levels R74.01 ; Body mass index [BMI] 45.0-49.9, adult Z68.42 ; Morbid (severe) obesity due to excess calories E66.01 ; Encounter for immunization Z23 ; Rheumatoid arthritis with rheumatoid factor, unspecified M05.9 ; Other specified disorders of breast N64.89 ; Hypertensive chronic kidney disease with stage 1 through stage 4 chronic kidney disease, or unspecified chronic kidney disease I12.9 and Lumbago with sciatica, left side M54.42 Zaki Villagomez MD [address] [id number] 03/28/2024 Melissa Kelly Type 2 diabetes peter itus without complications E11.9 ; Hypertensive chronic kidney disease with stage 1 through stage 4 chronic kidney disease, or unspecified chronic kidney disease I12.9 ; Chronic kidney disease, stage 1 N18.1 ; Elevation of levels of liver transaminase levels R74.01 ; Body mass index [BMI] 45.0-49.9, adult Z68.42 ; Morbid (severe) obesity due to excess calories E66.01 ; Rheumatoid arthritis with rheumatoid factor, unspecified M05.9 and Other specified disorders of breast N64.89 Zaki Villagomez MD [address] [id number] 04/13/2024 Melissa Kelly Localized swelling, mass and lump, lower limb, bilateral R22.43 ; Pain in right ankle and joints of right foot M25.571 ; Pain in left ankle and joints of left foot M25.572 ; Hypertensive chronic kidney disease with stage 1 through stage 4 chronic kidney disease, or unspecified chronic kidney disease I12.9 ; Chronic kidney disease, stage 1 N18.1 ; Body mass index [BMI] 45.0-49.9, adult Z68.42 ; Morbid (severe) obesity due to excess calories E66.01 and Rheumatoid arthritis with rheumatoid factor, unspecified M05.9 Zaki Villagomez MD [address] [id number] 04/21/2024 Melissa Kelly Muscle spasm of back M62.830 ; Hyperkalemia E87.5 ; Hypertensive chronic kidney disease with stage 1 through stage 4 chronic kidney disease, or unspecified chronic kidney disease I12.9 ; Chronic kidney disease, stage 1 N18.1 and Lumbago with sciatica, left side M54.42 Zaki Villagomez MD [address] [id number] 06/08/2024 Melissa Kelly Type 2 diabetes peter itus without complications E11.9 ; Hyperkalemia E87.5 ; Hypertensive chronic kidney disease with stage 1 through stage 4 chronic kidney disease, or unspecified chronic kidney disease I12.9 ; Chronic kidney disease, stage 1 N18.1 ; Atopic dermatitis, unspecified L20.9 and Other dietary vitamin B12 deficiency anemia D51.3 Zaki Villagomez MD [address] [id number] 09/07/2024 Melissa Waggonere Type 2 diabetes peter itus without complications E11.9 ; Hyperkalemia E87.5 ; Hypertensive chronic kidney disease with stage 1 through stage 4 chronic kidney disease, or unspecified chronic kidney disease I12.9 ; Chronic kidney disease, stage 1 N18.1 ; Rheumatoid arthritis with rheumatoid factor, unspecified M05.9 ; Body mass index [BMI] 45.0-49.9, adult Z68.42 and Morbid (severe) obesity due to excess calories E66.01 Zaki Villagomez MD [address] [id number] 09/28/2024 Melissa Kelly Hypertensive chronic kidney disease with stage 1 through stage 4 chronic kidney disease, or unspecified chronic kidney disease I12.9 ; Chronic kidney disease, stage 1 N18.1 ; Chronic cough R05.3 ; Personal history of urinary calculi Z87.442 and Asymptomatic microscopic hematuria R31.21 Zaki Villagomez MD [address] [id number] 12/25/2023 Melissa Villagomez MD [address] [id number] 10/20/2024 Melissa Kelly Disorder of kidney a nd ureter, unspecified N28.9 Zaki Villagomez MD [address] [id number] 12/23/2023 Melissa Villagomez MD [address] [id number] 12/23/2023 Melissa Kelly Type 2 diabetes peter itus with hyperglycemia E11.65 Zaki Villagomez MD [address] [id number] 01/04/2024 Melissa Villagomez MD [address] [id number] 01/07/2024 Melissa Kelly Type 2 diabetes peter itus with hyperglycemia E11.65 Zaki Villagomez MD [address] [id number] 01/09/2024 Melissa Villagomez MD [address] [id number] 01/11/2024 Melissa Kelly Type 2 diabetes peter itus with hyperglycemia E11.65 Zaki Villagomez MD [address] [id number] 01/12/2024 Melissa Villagomez MD [address] [id number] 02/05/2024 Melissa Kelly Other specified disorders of breast N64.89 Zaki Villagomez MD [address] [id number] 02/24/2024 Melissa Villagomez MD [address] [id number] 03/15/2024 Melissa Kelly Zaki Villagomez MD [address] [id number] 03/18/2024 Melissa Kelly Hypertensive chronic kidney disease with stage 1 through stage 4 chronic kidney disease, or unspecified chronic kidney disease I12.9 Zaki Villagomez MD [address] [id number] 04/11/2024 Melissa Kelly Zaki Villagomez MD [address] [id number] 04/15/2024 Melissa Kelly Zaki Villagomez MD [address] [id number] 04/15/2024 Melissa Kelly Muscle spasm of back M62.830 Zaki Villagomez MD [address] [id number] 04/20/2024 Melissa Kelly Zaki Villagomez MD [address] [id number] 04/20/2024 Melissa Kelly Zaki Villagomez MD [address] [id number] 04/29/2024 Melissa Kelly Unspecified lump in the right breast, overlapping quadrants N63.15 and Unspecified lump in the left breast, overlapping quadrants N63.25 Zaki Villagomez MD [address] [id number] 05/04/2024 Melissa Villagomez MD [address] [id number] 06/15/2024 Melissa Kelly Zaki Villagomez MD [address] [id number] 08/09/2024 Melissa Kelly Zaki Villagomez MD [address] [id number] 08/23/2024 Melissa Villagomez MD [address] [id number] 09/01/2024 Melissa Villagomez MD [address] [id number] 09/14/2024 Melissa Villagomez MD [address] [id number] 12/28/2023 Melissa Villagomez MD PC [address] [facility] [address] [place] [address] [id number] 02/02/2024 Melissa Villagomez MD PC [address] [facility] [address] [place] [address] [id number] 02/03/2024 Melissa Villagomez MD PC [address] [facility] [address] [place] [address] [id number] 02/17/2024 Melissa Villagomez MD PC [address] [facility] [address] [place] [address] [id number] 02/18/2024 Melissa Villagomez MD PC [address] [facility] [address] [place] [address] [id number] 02/24/2024 Melissa Villagomez MD PC [address] [facility] [address] [place] [address] [id number] 02/24/2024 Melissa Villagomez MD PC [address] [facility] [address] [place] [address] [id number] 03/02/2024 Melissa Villagomez MD PC [address] [facility] [address] [place] [address] [id number] 03/02/2024 Melissa Villagomez MD PC [address] [facility] [address] [place] [address] [id number] 04/26/2024 Melissa Villagomez MD PC [address] [facility] [address] [place] [address] [id number] 04/28/2024 Melissa Villagomez MD PC [address] [facility] [address] [place] [address] [id number] 06/22/2024 Melissa Villagomez MD PC [address] [facility] [address] [place] [address] [id number] 06/27/2024 Melissa Villagomez MD PC [address] [facility] [address] [place] [address] [id number] 06/27/2024 Melissa Kelly Type 2 diabetes peter itus without complications E11.9 Zaki Villagomez MD PC [address] [facility] [address] [place] [address] [id number] 08/24/2024 Melissa Villagomez MD PC [address] [facility] [address] [place] [address] [id number] 08/29/2024 Melissa Villagomez MD PC [address] [facility] [address] [place] [address] [id number] 09/20/2024 Melissa Villagomez MD PC [address] [facility] [address] [place] [address] [id number] 09/21/2024 Melissa Villagomez MD [address] [id number] 09/22/2024 Melissa Villagomez MD [address] [id number] 10/03/2024 Melissa Villagomez MD [address] [id number] 10/04/2024 Melissa Kelly Hypertensive chronic kidney disease with stage 1 through stage 4 chronic kidney disease, or unspecified chronic kidney disease I12.9 Zaki Villagomez MD [address] [id number] 10/11/2024 Melissa Villagomez MD [address] [id number] 10/12/2024 Melissa Kelly Assessments Encounter Date Diagnosis (ICD Code) Assessment Notes Treatment Notes Treatment Clinical Notes Section Notes 11/05/2023 Type 2 diabetes mellitus with hyperglycemia (ICD-10 - E11.65) Reviewed in office A1c of 5.7. Patient admits to not wearing her continuous glucose monitor since last visit but plans to obtain her sensors and begin using this again as she found this helpful in managing her sugars. Patient is completing her samples of Ozempic and her insurance recently approved Trulicity. Patient plans to begin Trulicity 0.75 mg. She also endorses much nausea and GI upset with metformin and has not been taking this medication for over a month. Patient can remain off of metformin but is instructed to continue using her injectable as this has greatly improved her A1c level.Plan will be for follow-up in 6 weeks 11/05/2023 Encounter for general adult medical examination without abnormal findings (ICD-10 - Z00.00) General healthcare up-to-date. Reviewed recent lab results and no further labs warranted at this time. Plan will be for annual in 1 year 12/16/2023 Type 2 diabetes mellitus with hyperglycemia (ICD-10 - E11.65) Patient admits to not wearing her continuous glucose monitor consistently but plans to obtain her sensors and begin using this again as she found this helpful in managing her sugars. Patient to continue using her trip was to be and will increased to 1.5 mg weekly. Encouraged patient to alternate injection sites to ensure improvement in localized reactions she has been noticing. Patient also to begin working with the dietitian to assist with better dietary choices to assist with her underlying diabetes.Plan will be for follow-up as scheduled to focus on DM management. 12/16/2023 Hypertensive chronic kidney disease with stage 1 through stage 4 chronic kidney disease, or unspecified chronic kidney disease (ICD-10 - I12.9) Blood pressure elevated during today's visit. Patient admits to not beginning her indapamide but given her elevated blood pressure patient would benefit from becoming compliant with indapamide as well as adding lisinopril for additional support in managing her hypertension. Plan will be for follow-up in 1 month to reassess blood pressure since starting these medications 12/23/2023 Type 2 diabetes mellitus with hyperglycemia (ICD-10 - E11.65) 01/07/2024 Type 2 diabetes mellitus with hyperglycemia (ICD-10 - E11.65) 01/11/2024 Type 2 diabetes mellitus with hyperglycemia (ICD-10 - E11.65) 01/13/2024 Type 2 diabetes mellitus with hyperglycemia (ICD-10 - E11.65) Patient to remain on 3 mg Trulicity dose weekly to assist with underlying type 2 diabetes. Patient has an upcoming appointment at the end of January to further evaluate A1c and determine if additional medications are warranted to assist with management of her diabetes 01/13/2024 Chronic kidney disease, stage 1 (ICD-10 - N18.1) GFR greater than 100 with previous lab work. 02/01/2024 Type 2 diabetes mellitus with hyperglycemia (ICD-10 - E11.65) In office A1c noted to be 5.7 today. Discussed with patient that given her lows throughout the day would like patient to speak to her dietitian regarding proper snacks and food choices to better manage her calorie intake as well as her sugars. The only change in patient's medications was an increase in her Trulicity. The pharmacy was not able to obtain the 1.5 mg dose and in turn patient started the 3mg dose. Patient to return to 0.75 mg dosing weekly to assist with managing her sugars and to ensure her low readings are not present due to restrictive intake. Patient to follow-up in 6 weeks to reassess A1c level and to review her CGM data to ensure her sugars have improved and her episodes of low glucose readings have resolved. 02/01/2024 Chronic kidney disease, stage 1 (ICD-10 - N18.1) GFR greater than 100 with previous lab work. 02/05/2024 Other specified disorders of breast (ICD-10 - N64.89) 03/18/2024 Hypertensive chronic kidney disease with stage 1 through stage 4 chronic kidney disease, or unspecified chronic kidney disease (ICD-10 - I12.9) 03/28/2024 Type 2 diabetes mellitus without complications (ICD-10 - E11.9) In office A1c noted to be 6.2, which is a slight increase since last visit, but patient was unable to obtain the correct dose of Trulicity and due to this she did have to go down to a lower dose. Will increase patient to 1.5 mg of Trulicity as this may provide better coverage and management of her diabetes. Patient to continue working with her baseball glove stuffer to assist with better food choices. She is also scheduled to see a weight loss specialist in the coming months to discuss weight loss surgery options.Patient to continue using her continuous glucose monitor and follow-up with any concerns 03/28/2024 Hypertensive chronic kidney disease with stage 1 through stage 4 chronic kidney disease, or unspecified chronic kidney disease (ICD-10 - I12.9) Blood pressure with slight elevation and did review patient's dry, nonproductive cough with use of [place] inhibitor's. Due to this we will discontinue use of ramipril and patient to continue taking her indapamide and will also add amlodipine for proper management of her underlying hypertension.Mirian ent to follow-up in 2 months to reassess blood pressure since making the medication adjustments 04/13/2024 Pain in right ankle and joints of right foot (ICD-10 - M25.571) Pt is experiencing more discomfort in her right ankle compared to left. Due to this, will obtain a uric acid level to ensure underlying gout is not the cause for her ankle swelling. Discussed this does seem less likely the cause given her bilateral swelling as gout is typically unilateral during acute gout attacks 04/15/2024 Muscle spasm of back (ICD-10 - M62.830) 04/21/2024 Hyperkalemia (ICD-10 - E87.5) Will obtain an updated comprehensive panel to reassess potassium levels given patient's recent ER admission for concerning potassium levels by her weight loss specialist. Will hold on beginning any treatments for hyperkalemia until repeat comprehensive panel results are back. Patient agreeable with this plan 04/13/2024 Localized swelling, mass and lump, lower limb, bilateral (ICD-10 - R22.43) Suspect patient's bilateral lower extremity swelling was related to amlodipine use. Once patient discontinued use of amlodipine, she states her swelling has greatly improved. Will obtain additional labs to ensure patient does not have an elevated proBNP level due to the concerns of bilateral lower extremity swelling, although CHF does not seem to be the underlying cause for her symptoms 04/21/2024 Muscle spasm of back (ICD-10 - M62.830) Suspect patient is dealing with lumbosacral pain that is causing associated left-sided sciatica pain. Encouraged patient to apply ice to he left lower back to assist with muscle spasms (20 mins at a time 2-3 times a day). She can also take her previously prescribed Flexeril to assist with muscle spasms. Patient to follow-up should her symptoms worsen or new symptoms of concern begin 06/08/2024 Type 2 diabetes mellitus without complications (ICD-10 - E11.9) In office A1c noted to be 4.7. Patient has been working on improving her diet with her weight loss specialist. She continues to take her medications regularly and reviewed her CGM data which did show that she is in range 93% of the time. Encouraged patient to make sure she is eating well-balanced and she is to make sure she is having enough caloric intake throughout the day 04/29/2024 Unspecified lump in the right breast, overlapping quadrants (ICD-10 - N63.15) 04/29/2024 Unspecified lump in the left breast, overlapping quadrants (ICD-10 - N63.25) 06/27/2024 Type 2 diabetes mellitus without complications (ICD-10 - E11.9) 09/07/2024 Type 2 diabetes mellitus without complications (ICD-10 - E11.9) In office A1c noted to be 5.6. Patient continues to take her Trulicity 1.5 mg but admits to not eating well since last visit and since she stopped working with her weight loss specialist. Reviewed her CGM data which did show that she is in range 90% of the time. Encouraged patient to follow-up with her baseball glove stuffer for further guidance on proper calorie intake and appropriate food choices given her underlying diabetes diagnosis 09/28/2024 Hypertensive chronic kidney disease with stage 1 through stage 4 chronic kidney disease, or unspecified chronic kidney disease (ICD-10 - I12.9) Blood pressure with slight elevation noted today. Patient states that she has discontinued losartan due to feeling dizzy and having blurred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
--- OUTSIDE RECORDS SUMMARY | 2024-10-24 12:21 | XMS_ITS ---
Author Organization [facility] Address [address] [facility] [place] [address] Care Team Providers Care Physician Relations Representative Name Role Phone Zaki Villagomez MD Primary Care Provider Unavail Cindi Cristobal [phone] Encounters Encounter Location Date Provider Diagnosis [address] [address] 04/06/2024 Cindi Beavers Plan Of Treatment No Information Progress Notes * PANCHOShantellevernonDOB: [birth year] (34 yo F)Acc No.[id number]:04/06/2024 Progress Note Patient:Namita RAUSCH Provider:Yari Beavers DPM :1990???Age:33 Y???Sex:Female D ate:04/06/2024 Address:[address] [place] [address] Pcp:Zaki Villagomez MD Subjective: * Chief Complaints: * ??? * Medical History:? Objective: * Vitals:? Assessment: Plan: * Treatment: * Images: * The named appointment provid er may or may not be the originator of this progress note, and it is not deemed complete until electronically signed by the appointment provider. Sign off status: Pending * Provider:Yari Beavers DPM Date:?2023 Generated for Mitul best/Filiberto/eTransmitting on:?10/24/2024 12:21 PM EST
--- OUTSIDE RECORDS SUMMARY | 2024-10-24 12:21 | XMS_ITS ---
Author Organization Zaki Villagomez MD Address [address] [place] [phone] Care Team Providers Care Inside Phone Sales Name Role Phone KellyMelissa Primary Care Provider REASON FOR VISIT Reasonable accommodation form Encounters Encounter Location Date Provider Diagnosis Zaki Villagomez MD [address] [place] [address] [place] [phone] 10/11/2024 Melissa Kelly Plan Of Treatment Next Appt Details Provider Name:Melissa Kelly , 11/14/2024 10:30:00 AM, [address] [place] [address], [phone], Progress Notes * Namita DELEONDOB: [birth year] (34 yo F)Acc No.[id number]:10/11/2024 Patient:?Namita DELEON :1990???Age:34 Y???Sex:Female Address:[address] [place] [address] * true * Date:? Generated for Danutai estephania/Filiberto/eTransmitting on:?10/24/2024 12:21 PM EST
--- OUTSIDE RECORDS SUMMARY | 2024-10-24 12:22 | XMS_ITS ---
Author Organization [facility] Address [address] [place] [address] Care Team Providers Care Heavy Forging Machine Operator Name Role Phone Zaki Villagomez MD Primary Care Provider Unavail able Black, Cindi Unavailable [phone] REASON FOR VISIT Out of network Encounters Encounter Location Date Provider Diagnosis [facility] [address] [place] [address] 01/29/2024 Cindi Beavers Plan Of Treatment No Information Progress Notes * Namita DELEONDOB: [birth year] (33 yo F)Acc No.[id number]:01/29/2024 Patient:?Namita Deleon :1990???Age:33 Y???Sex:Female Address:[address] [place] [address] * true * Date:? Generated for Mitul best/Filiberto/eTransmitting on:?10/24/2024 12:21 PM EST
--- OUTSIDE RECORDS SUMMARY | 2024-10-24 12:22 | XMS_ITS ---
Author Organization [facility] Address [address] [place] [address] Care Team Providers Care Motor Assembler Name Role Phone Zaki Villagomez MD Primary Care Provider Unavail able Black, Cindi Unavailable [phone] REASON FOR VISIT cx 04/06 Encounters Encounter Location Date Provider Diagnosis [facility] [address] [place] [address] 04/05/2024 Cindifelicitas Beavers Plan Of Treatment No Information Progress Notes * Namita DELEONDOB: [birth year] (33 yo F)Acc No.[id number]:04/05/2024 Patient:?Namita Deleon :1990???Age:33 Y???Sex:Female Address:[address] [place] [address] * true * Date:? Generated for Mitul best/Filiberto/eTransmitting on:?10/24/2024 12:21 PM EST
--- OUTSIDE RECORDS SUMMARY | 2024-10-24 12:22 | XMS_ITS | Patient Health Record ---
Author Organization [facility] Address [address] [place] [address] Care Team Providers Care As400 Programmer Name Role Phone Zaki Villagomez MD Primary Care Provider Unavail able Black, Cindi Unavailable [phone] Allergies Allergen (clinical drug ingredient) Drug/Non Drug Allergy documented on EMR Reaction Allergy Type Onset Date Status etanercept Enbrel Unknown Drug Allergy Active Humira Unknown Drug Allergy Active venlafaxine Venlafaxine Unknown Drug Allergy Act kandis Results Component Value Reference Range Notes X ray : Foot, left 3V Reviewed date:12/08/2023 12:41:14 PM Interpretation:See Examination above Performing Lab: Notes/Report: See Examination above X ray : Foot, right 3V Reviewed date:12/08/2023 12:41:05 PM Interpretation:See Examination above Performing Lab: Notes/Report: See Examination above HEMOGLOBIN A1C (GLYCOHEMOGLO BIN) Reviewed date:12/08/2023 09:03:45 AM Interpretation: Performing Lab: Notes/Report: HEMOGLOBIN A1C (HH) 4.8 Reason For Referral No Information Medications Medication SIG (Take, Route, Frequency, Duration) Notes Start Date End Date Status Magnesium Active Methotrexate Sodium 2.5 MG Oral for 28 Days Active Lisinopril 10 MG 1 tablet Orally Once a day Active Indapamide 1.25 MG Oral for 30 Days Active Inflectra 100 MG Intravenous for 28 Days Active FreeStyle April 2 Sensor 11/27/2023 Active Trulicity 0.75 MG/0.5ML Subcutaneous for 28 Days Active Gabapentin 300 MG Oral for 30 Days Active Ammonium Lactate 12 % 1 application Exte rnally Twice a day for 30 days Active Meloxicam 15 MG Oral for 30 Days Active Vitamin D Active metFORMIN HCl 500 MG TAKE 1 TABLET BY [facility] TWICE A DAY WITH A MEAL FOR 90 DAYS Oral for 90 Days Active Iron 11/27/2023 Active Loratadine 10 MG 1 tablet Orally Once a day for 30 day(s) 11/27/2023 Active oxyCODONE HCl 10 MG Oral for 28 Days Active Folic Acid 1 MG Oral for 90 Days Active predniSONE 5 MG Oral for 30 Days Active Immunizations Vaccine Route Administration Date Status Comme nts Influenza Unknown 07/31/2023 Administered Social History Tobacco Use: Social History Observation Description Date Details (start date - stop date) Current Smoker NA - NA Tobacco Use/Smoking Question Answer Notes Are you a: current smoker Alcohol Screen Question Answer Notes Did you have a drink containing alcohol in the p ast year? No Points 0 Interpretation Negative Tobacco use other than smoking: Question Answer Notes Are you an other tobacco user? No Problems Problem Type SNOMED Code ICD Code Onset Dates Problem Status W/U Status Risk Notes Problem Acquired hammer toe of right foot (8372660912907232) Other hammer toe(s) (acquired), right foot (M20.41) Active confirmed Problem Acquired hammer toe of left foot (2418048201430820) Other hammer toe(s) (acquired), left foot (M20.42) Active confirmed Problem Type 2 diabetes mellitus without complication (542108457) Type 2 diabetes mellitus without complication (E11.9) Active confirmed Problem Localized, primary osteoarthritis of the ankle and/or foot (179927972) Arthritis of joint of lesser toe, left (M19.072) Active confirmed Problem Localized, primary osteoarthritis of the ankle and/or foot (828474518) Arthritis of joint of lesser toe, right (M19.071) Active confirmed Vital Signs Height 5 ft 3 in in 01/26/2024 Weight 262 lbs 01/26/2024 BMI 46.41 kg/m2 01/26/2024 Procedures Procedure Date Ordered Date Performed Result Body Sit e 87083-FSLIHLM NAIL, 6 OR MORE 12/08/2023 N/A 39207-Yvkpbrda Plate 01/26/2024 N/A 19886-LLEP SKIN LESIONS, 2 TO 4 01/26/2024 N/A Encounters Encounter Location Date Provider Diagnosis [facility] [place] [address] 12/08/2023 Cindi Black Xerosis of skin L85. 3 ; Acquired hallux interphalangeus, right M20.11 ; Pain in right toe(s) M79.674 ; Tinea unguium B35.1 ; Pain in left toe(s) M79.675 ; Type 2 diabetes mellitus without complication E11.9 ; Other hammer toe(s) (acquired), right foot M20.41 ; Arthritis of joint of lesser toe, right M19.071 ; Other hammer toe(s) (acquired), left foot M20.42 ; Arthritis of joint of lesser toe, left M19.072 ; Acquired hallux interphalangeus, left M20.12 and Ingrown nail L60.0 [facility] [address] [address] 01/26/2024 Cindi Nimesh Xerosis of skin L85. 3 ; Type 2 diabetes mellitus without complication E11.9 ; Ingrown nail L60.0 and Nail dystrophy L60.3 [facility] [address] [address] 11/27/2023 Cindifelicitas Beavers [address] [address] 12/08/2023 [facility] [address] 01/29/2024 Cindifelicitas Beavers [address] [address] 04/05/2024 Cindifelicitas Beavers Assessments Encounter Date Diagnosis (ICD Code) Assessment Notes Treatment Notes Treatment Clinical Notes Section Notes 12/08/2023 Xerosis of skin (ICD-10 - L85.3) 12/08/2023 Acquired hallux interphalangeus, right (ICD-10 - M20.11) 01/26/2024 Xerosis of skin (ICD-10 - L85.3) Response to treatment - Improvement 01/26/2024 Type 2 diabetes mellitus without complication (ICD-10 - E11.9) 01/26/2024 Ingrown nail (ICD-10 - L60.0) 12/08/2023 Pain in right toe(s) (ICD-10 - M79.674) 12/08/2023 Tinea unguium (ICD-10 - B35.1) 01/26/2024 Nail dystrophy (ICD-10 - L60.3) 12/08/2023 Pain in left toe(s) (ICD-10 - M79.675) 12/08/2023 Type 2 diabetes mellitus without complication (ICD-10 - E11.9) 12/08/2023 Other hammer toe(s) (acquired), right foot (ICD-10 - M20.41) 12/08/2023 Arthritis of joint of lesser toe, right (ICD-10 - M19.071) 12/08/2023 Other hammer toe(s) (acquired), left foot (ICD-10 - M20.42) 12/08/2023 Arthritis of joint of lesser toe, left (ICD-10 - M19.072) 12/08/2023 Acquired hallux interphalangeus, left (ICD-10 - M20.12) 12/08/2023 Ingrown nail (ICD-10 - L60.0) Plan Of Treatment Pending Test Test Name Order Date *Liver Function Test (LFT) 12/08/2023 21658-CNBNCHN NAIL, 6 OR MORE 12/08/2023 21496-Aafrdnvh Plate 01/26/2024 69720-EHKU SKIN LESIONS, 2 TO 4 01/26/20 24 Nail Panel 12/08/2023 Medical (General) History Medical History History ICD Code Anxiety Back,Hip,and Knee pain Depression Diabetic Chicken pox Rheumatoid arthritis Surgical History Surgery Date(Month/Year) kidney stones 10/30/23
--- OUTSIDE RECORDS SUMMARY | 2024-10-24 12:22 | XMS_ITS | Patient Health Record ---
Author Organization [facility] Address [address] [place], [place] [id number] Care Team Providers Care Vpk Teacher Name Role Phone Flor Tuttle Unavailable [phone] Reason For Referral No Information Plan Of Treatment No Information Insurance Providers Payer Name Payer Address Payer Phone Subscriber Number Group Number Insured Name Patient Relationship to Insured Coverage Start Date Coverage End Date [facility] [employer] [address] [place] [address] Namita Deleon Self - patient is the insured
== END 2024-10-24 12:19 | disposition home or self-care (01) ==
LOC: HO.HOSX 12:18
PROVIDERS: Visit Provider Orthopaedic Surgery
DX: M25.559 Pain in unspecified hip (principal); M16.6 Other bilateral secondary osteoarthritis of hip; M06.9 Rheumatoid arthritis, unspecified; E11.9 Type 2 diabetes mellitus without complications; M17.9 Osteoarthritis of knee, unspecified
CPT/HCPCS: 72170; 99202

== ENCOUNTER 2024-10-24 12:46 | Outpatient (AMB) | payer MEDICARE, SELFPAY ==
[2024-10-24 12:54] VITALS: BMI 44.3
--- NOTE | 2024-10-24 12:54 | MHC.OFFVIS ---
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 Patient reports that her hip has been painful for many years now. She explains that she has severe RA and is being [facility] with [facility] Rudy [facility]. She has had history of therapy, injections and medications without relief. 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 Patient reports that her hip has been painful for many years now. She explains that she has severe RA and is being treated with Dr. Rudy [facility]. She has had history of therapy, injections and medications without relief. She states she 1st had symptoms 8 years ago in did not know what to make of it finally she was seen by the appropriate people and diagnosed with rheumatoid arthritis and has been on a biologic now for 4-5 years and states it has been unbelievably helpful. Unfortunately she has developed arthritis of her large joints especially in her hips and knees and has been suffering periods particularly frustrating for her because she has had such a positive effect from the biologic agents but she still severely limited by hip and knee pain. Her primary complaint today is right groin pain. She uses a walker to walk. She has difficulty moving the leg . She was seen at an outside orthopedic office and they were concerned about her age and her weight. She has also been in weight management but does not want to continue being seen at [facility] for this. She is seeking medical management for her weight with her primary care doctor. [facility] Medical History Hypertension Anxiety Stress incontinence Rheumatoid arthritis Non-insulin dependent type 2 diabetes mellitus Sleep apnea treated with continuous positive airway pressure (CPAP) Morbid obesity Surgical History History of surgery on arm H/O lithotripsy Social History (Updated 10/24/24 @ 13:00 by Giselle Santiago [facility]) Patient Tobacco Use Status: Current everyday Tobacco user Cigarettes Per Day: 5 Substance Use Type: Marijuana Current occupational status: disabled Physical Exam Vital Signs: BMI result Body Mass Index 44.3 Extrem Other: Minimal rotation possible in her right hip. I can flex it to 90 and extend it to -15. Pain with external and internal rotation. Her left hip is also painful with positive impingement test but she does have slightly more external rotation. Her knees are both mildly contracted and have about 10-110 degrees of motion. Results Reviewed Results Reviewed: I personally reviewed relevant radiographs. There is severe arthritis of the right hip with total obliteration of the joint space and collapse of the femoral head. There is also severe hip arthritis on the left with less femoral head destruction Assessment & Plan Assessment & Plan (1) Secondary osteoarthritis of both hips: Code(s): M16.6 - Other bilateral secondary osteoarthritis of hip Category: Medical Plan: This is a very pleasant 34-year-old woman with severe osteoarthritis of the right hip. She can not ambulate without pain and a sttoped gait and a walker.. She feels the quality of her life is severely diminished. I discussed treatment options with her. I do think she would benefit from hip arthroplasty. We also discussed her BMI which is somewhere between 44 and 46. A trueBMI calculation is difficult due to a poor height measurement given that she can not stand up straight. She states she was actually 5'5 . Regardless I do think she needs to lose at least 50 lb prior to surgery. She thinks this is possible. She is working on this with her primary care doctor. She states she is also working on controlling her diabetes. I do not know what her last hemoglobin A1c but it needs to be below 8 in order to consider surgery. We did discuss the benefits of surgery. We also discussed the risks given her age and rheumatoid arthritis. There is a risk of aseptic loosening as well as infection that is higher than come someone who has primary osteoarthritis. I think it is reasonable to tentativelyplan surgery an about 6 months. I would like her to initiate physical therapy for her knees more than anything so that she can maintain some range of motion. She understands this. (2) Rheumatoid arthritis: Code(s): M06.9 - Rheumatoid arthritis, unspecified Category: Medical Plan: (3) Non-insulin dependent type 2 diabetes mellitus: Code(s): E11.9 - Type 2 diabetes mellitus without complications Category: Medical Plan: (4) Knee osteoarthritis: Code(s): M17.9 - Osteoarthritis of knee, unspecified Category: Medical Plan: Orders: Orders XR pelvis 1-2V Today M25.559 - Pain in unspecified hip PT Evaluation and Treatment Today M16.6 - Other bilateral secondary osteoarthritis of hip, M17.9 - Osteoarthritis of knee, unspecified Coding Level of Care Code New Pt Level 4 (55607) Diagnoses Secondary osteoarthritis of both hips M16.6 Rheumatoid arthritis M06.9 Non-insulin dependent type 2 diabetes mellitus E11.9 Knee osteoarthritis M17.9
== END 2024-10-24 15:37 | disposition home or self-care (01) ==
PROVIDERS: PCP Internal Medicine; Visit Provider Orthopaedic Surgery
DX: M16.6 Other bilateral secondary osteoarthritis of hip (principal); M06.9 Rheumatoid arthritis, unspecified; E11.9 Type 2 diabetes mellitus without complications; M17.9 Osteoarthritis of knee, unspecified
CPT/HCPCS: 99204